=== PATIENT | female | born 2000 | race Caucasian/White ===

== ENCOUNTER 2022-09-20 09:58 | Emergency (ER) | payer OTHER, SELFPAY ==
[2022-09-20 10:09] VITALS: BP 121/50; PULSE 87; RESP 20; TEMP 36.7; O2SAT 98; BMI 28.3
[2022-09-20 10:19] LABS: MANUAL DIFF FLAG NO
[2022-09-20 10:21] LABS: Basophils Absolute Auto 0.1 X10*3/uL (0.0-0.2); Basophils Percent Auto 0.3 % (0-2); Eosinophils Absolute Auto 0.1 X10*3/uL (0.0-0.4); Eosinophils Percent Auto 0.8 % (0-4); Hematocrit 34.1 % (37.0-47.0); Hemoglobin 10.7 g/dl (12.0-16.0); Imm Gran Pct Auto 0.6 % (0.0-0.4); Lymphocytes Absolute Auto 1.9 X10*3/uL (1.2-4.9); Lymphocytes Percent Auto 10.8 % (20-40); Mean Corpuscular HGB Conc 31.4 g/dl (31.0-35.0); Mean Corpuscular Hemoglobin 24.1 pg (27.0-33.0); Mean Corpuscular Volume 76.8 fL (80.0-98.0); Mean Platelet Volume 10.1 fL (9.4-12.3); Monocytes Absolute Auto 0.9 X10*3/uL (0.1-1.2); Monocytes Percent Auto 4.8 % (2-11); Neutrophils Absolute Auto 14.7 x10*3/uL (2.0-8.3); Neutrophils Percent Auto 82.7 % (45-73); Platelet Count 500 X10*3/uL (160-400); Red Blood Count 4.44 X10*6/uL (4.20-5.50); Red Cell Distribution Width 16.1 % (11.0-16.0); White Blood Count 17.8 X10*3/uL (4.8-10.8)
[2022-09-20 10:45] LABS: Anion Gap 12 (12-20); Blood Urea Nitrogen 12 mg/dL (9-16); Calcium 9.1 mg/dL (8.4-10.2); Carbon Dioxide 25 mmol/L (22-29); Chloride 107 mmol/L (96-108); Creatinine Clr Calc Pharmacy 140.8; Estimated Glomerular Filt Rate > 60; Glucose Random 98 mg/dL (60-115); Sodium 140 mmol/L (135-145)
[2022-09-20 10:53] LABS: HCG Quantitative < 2 mIU/mL
--- NOTE | 2022-09-20 11:48 | ED_ITS ---
HPI - General Adult General Chief complaint: General Medical Stated complaint: /cramping Time Seen by Provider: 09/20/22 11:17 Source: patient Mode of arrival: ambulatory Limitations: no limitations History of Present Illness HPI narrative: Patient is a 21 year old assigned female at with no reported medical history presenting to the emergency department today with nausea and requesting a test. Patient states that she was concerned she was , had heavy bleeding last week that stopped, and she is now nauseous. Patient denies any dizziness, lightheadedness, abdominal pain, vomiting, fever, chills, blurry vision, double vision, loss of vision, chest pain, difficulty breathing, shortness of breath, back pain, night sweats, pain with urination, increased urinary frequency, increased urinary urgency, blood in her urine or stool, syncope or a near syncopal episode, recent trauma or falls, bowel incontinence, bladder incontinence, bowel retention, bladder retention, or any other complaints at this time. Onset (ago): day(s) Severity: mild Severity scale (1-10): 2 Relieving factors: none Exacerbating factors: none Associated symptoms: nausea/vomiting Treatments prior to arrival: none Related Data Allergies Allergy/AdvReac Type Severity Reaction Status Date / Time No Known Allergies Allergy Unverified 06/30/20 18:20 Review of Systems Constitutional: Constitutional: Reports no additional constitutional complaints, Denies chills, Denies fever(s) and Denies night sweats Eyes: Eyes: Reports no additional eye complaints, Denies blurry vision, Denies change in vision, Denies diplopia, Denies eye discharge, Denies loss of vision and Denies eye pain ENT: Denies dizziness Cardiovascular: Cardiovascular: Reports no additional cardiovascular complaints, Denies chest pain, Denies lightheadedness, Denies Loss of Consciousness and Denies dyspnea Respiratory: Respiratory: Reports no additional respiratory complaints and Denies dyspnea Gastrointestinal: Gastrointestinal: Reports no additional gastrointestinal complaints, Denies abdominal pain, Denies melena, Denies hematochezia, Denies change in bowel habits, Denies change in stool character and Reports nausea Genitourinary: Genitourinary: Denies hematuria, Denies urinary frequency, Denies dysuria, Denies urinary incontinence, Denies urinary hesitancy and Denies urinary urgency Musculoskeletal: Musculoskeletal: Reports no additional musculoskeletal complaints, Denies numbness and Denies tingling Neurologic: Denies dizziness, Denies loss of vision, Denies numbness and Denies tingling Psychiatric: Psychiatric: Reports no additional psychiatric complaints Endocrine: Endocrine: Reports no additional endocrine complaints Hematologic/Lymphatic: Hematologic/Lymphatic: Reports no additional hematologic/lymphatic complaints Allergic/Immunologic: Allergic/Immunologic: Reports no additional allergic/immunologic complaints [facility] Past Medical History Attestation statement: The following information was validated with the patient. Source: old records reviewed and nursing notes reviewed Social History Social History Advance Directives: No Physical Exam ED Vital Signs: Vital Signs - 24 hr 09/20/22 10:09 Temperature 98.0 F Pulse Rate 87 Respiratory Rate 20 Blood Pressure 121/50 L Pulse Oximetry 98 Oxygen Delivery Method Room Air BMI result Body Mass Index 28.3 Const General: cooperative, no acute distress, alert and awake Nutritional Appearance: well nourished Orientation/consciousness: patient oriented x3 Limitations: no limitations HENMT Head: Yes normal to inspection and Yes atraumatic Ears: hearing grossly normal bilaterally and external ears normal General nose exam: Normal external nose present, no nasal discharge noted and no epistaxis Face and sinus: Yes normal facial exam, No abrasion and No laceration Mouth: Normal oral and palatal mucosa present, no drooling and no muffled voice Eyes General: appearance normal, both eyes and all related structures Periorbital: periorbital findings normal Eyelids: Yes eyelids normal Conjunctivae: conjunctivae normal Pupils: Equal, round and reactive pupils present EOM: EOMs intact bilaterally Neck Neck: Yes normal visual inspection, Yes full ROM and Yes no lymphadenopathy Chest Chest palpation & inspection: normal inspection of the chest Resp Effort & Inspection: normal respiratory effort and able to speak in complete sentences Auscultation: clear to auscultation bilaterally Cardio Rate: regular rate Rhythm: regular rhythm GI Inspection: Yes normal to inspection Palpation (GI): Soft to palpation, not firm, nontender, no guarding and not rigid Neuro General: patient oriented x3 and moves all extremities Cranial nerves: Yes Equal, round and reactive pupils present Cognition (Neuro): normal cognition Motor exam (neuro): 5/5 motor strength present throughout Sensory Exam: Normal double simultaneous stimulation for sensation Coordination: [id number] test normal Extrem General: Yes normal to inspection, Yes full ROM and Yes capillary refill normal Psych Appearance: grossly normal Mental Status: mental status grossly normal Affect: normal affect Attitude: cooperative Thought process: Normal thought process present Thought content: Normal thought content present Insight: Good insight present (Psych) Medical Decision Making Medical Decision Making MDM Narrative: Patient is a 21 year old assigned female at with no reported medical history presenting to the emergency department today with nausea. Patient's physical exam was unremarkable. Patient's blood work showed an elevated white blood cell count but was otherwise unremarkable, including <2 HCG. I attribute the patient's elevated white blood cell count to a stress reaction vs. enteritis. I explained my physical exam findings as well as all test results to the patient. I answered all questions asked by the patient. I stressed the importance of the patient taking her medication as prescribed. I stressed the importance of the patient following up with her primary care provider. I stressed the importance of the patient returning to the emergency department immediately if her symptoms were to worsen or if she were to develop any dizziness, shortness of breath, difficulty breathing, chest pain, blurry vision, loss of vision, nausea, vomiting, abdominal pain, fever, chills, back pain, or any other complaints. Patient verbalized agreement and understanding with this treatment plan and discharge. Differential Diagnoses: Differential diagnosis Differential Diagnosis: nausea, , enteritis Lab Attestation: I reviewed the patient's lab results. Discharge Plan Discharge Clinical Impression: Nausea Patient Disposition: Home, Self-Care Instructions: Acute Nausea and Vomiting (ED) Additional Instructions: Follow up with your primary care provider and an OBGYN. Return to the emergency department immediately if your symptoms worsen or if you develop any dizziness, shortness of breath, difficulty breathing, chest pain, blurry vision, loss of vision, nausea, vomiting, abdominal pain, fever, chills, back pain, or any other complaints. Referrals: Abby Austin MD [Primary Care Provider] - Indio Alcantara MD [Physician] - (Call to establish and follow up with an OBGYN. ) Stand Alone Forms: Work/School Release Print Language: Greek
[2022-09-20 12:23] VITALS: BP 112/71; PULSE 83; RESP 16; O2SAT 99
== END 2022-09-20 12:25 | disposition home or self-care (01) ==
PROVIDERS: Emergency Provider Emergency Medicine; PCP Pediatrics Adolescent Medicine
DX: O20.9 Hemorrhage in early pregnancy, unspecified (principal); R11.0 Nausea; Z79.899 Other long term (current) drug therapy; Z3A.00 Weeks of gestation of pregnancy not specified
CPT/HCPCS: 36415; 80048; 84702; 85025; 99283

== ENCOUNTER 2023-06-08 18:29 | Emergency (ER) | payer OTHER, SELFPAY ==
--- NOTE | ~2023-06-08 | XR_ITS ---
EXAMINATION: XR CHEST CLINICAL INFORMATION: Cough, hemoptysis. COMPARISON: Chest radiograph 06/26/2015. TECHNIQUE: AP view of the chest was obtained. FINDINGS: No significant abnormality is noted involving the heart, lungs, mediastinum, bony thorax or soft tissues. XR/XR chest 1V IMPRESSION: Unremarkable examination.
[2023-06-08 18:29] VITALS: BP 115/54; PULSE 91; RESP 20; TEMP 37.2; O2SAT 98; BMI 31.3
--- NOTE | 2023-06-08 18:59 | ED_ITS ---
HPI - General Adult General Chief complaint: General Medical Stated complaint: throat pain Time Seen by Provider: 06/08/23 18:52 Source: patient and family Mode of arrival: ambulatory Limitations: no limitations History of Present Illness HPI narrative: Patient comes to the emergency room accompanied by her fiance. Patient states that for last 2 days she has been having sore throat, coughing, patient states that she has seen some blood when she coughs. Patient states he has very scant, pinkish. Patient denies fever chills, no shortness of breath. No one else in the family has the same symptoms. Denies chest pain. No nausea vomiting or diarrhea. Related Data Allergies Allergy/AdvReac Type Severity Reaction Status Date / Time No Known Allergies Allergy Verified 06/08/23 18:35 Review of Systems Review of Systems: Constitutional : No Weight loss, No Fever, No Chills, No Night Sweats, No Fatigue, No Malaise ENT/Mouth : No Hearing loss, No Ear Pain, No Nasal Congestion, No Sinus Pain, No Hoarseness, patient complaining of sore throat, No Rhinorrhea, No Swallowing Difficulty Eyes: No Eye Pain, No Swelling, No Redness, No Foreign Body, No Discharge, No Vision Changes Cardiovascular : No Chest Pain, No SOB, No Dyspnea on Exertion, No Orthopnea, No Edema, No Palpitations Respiratory : Patient complaining of cough with pinkish sputum,, No Wheezing, No Smoke Exposure, No Dyspnea Gastrointestinal : No Nausea, No Vomiting, No Diarrhea, No Constipation, No abdominal Pain, No Hematochezia, No Melena Genitourinary : no irregular bleeding, No Dysuria, No Urinary Frequency, No Hematuria, No Urinary Incontinence, No Urgency, No Flank Pain, No Urinary Flow Changes, No Hesitancy Musculoskeletal : No joint pain, No Myalgias, No Joint Swelling Skin : No Skin Lesions, No rash Neuro : No Weakness, No Numbness, No Paresthesias, No Loss of Consciousness, No Dizziness, No Headache Psych : No Anxiety/Panic, No Depression, No SI/HI/AH/VH, No Social Issues, Heme/Lymph: No Bruising, No Bleeding,No Lymphadenopathy Endocrine : No Polyuria, No Polydipsia, No Temperature Intolerance PMFSH Social History Social History Alcohol intake: never Use of substances other than those prescribed or required for medical reasons: No Advance Directives: No Patient : No Physical Exam ED Vital Signs: Vital Signs - 24 hr 06/08/23 18:29 06/08/23 19:20 06/08/23 20:00 Temperature 98.9 F 98.2 F 98.7 F Pulse Rate 91 73 69 Respiratory Rate 20 18 16 Blood Pressure 115/54 L 109/61 110/68 Pulse Oximetry 98 98 100 Oxygen Delivery Method Room Air Room Air Room Air BMI result Body Mass Index 31.3 Const Other: Appearance: Alert. Oriented X3. No acute distress. Well-appearing Eyes: Pupils equal, round and reactive to light. ENT: Pharynx mildly erythematous, no exudates, no abscesses Neck: Normal inspection. Neck supple. No lymph nodes noted. No crepitus CVS: Normal heart rate and rhythm. Pulses normal. Normal S1 and S2 Respiratory: No respiratory distress. Breath sounds normal. No Wheezing. No rales Abdomen: Soft and nontender. No rigidity. No distention. Skin: Skin warm and dry. Normal skin color. Normal skin turgor. Extremities: No lower extremity edema. No Lacerations. No Rash Neuro: Oriented X 3. No motor deficit. No sensory deficit. Moving all extremities. No slurred speech. CN 2 through 12 grossly intact Psych: calm, cooperative, normal affect Medical Decision Making Medical Decision Making [facility] Narrative: -my interpretation of chest x-ray: No pneumonia -radiology report: Unremarkable x-ray of the chest -my interpretation of labs, patient tested negative for COVID, influenza or strep -patient was given a dose of p.o. dexamethasone and viscous lidocaine -patient likely having a viral pharyngitis Differential Diagnosis Differential Diagnoses: The differential diagnosis associated with the presentation includes (Viral pharyngitis, strep pharyngitis, COVID, influenza) Lab Data [facility] Lab Attestation statement: I reviewed the patient's lab results. Labs: Lab Results 06/08/23 06/08/23 06/08/23 Range/Units 19:19 19:19 19:19 COVID-19 (BESSIE) Negative (Negative) COVID-19 Clin Com See Note Influenza Type A (MANJEET) Negative (Negative) Influenza Type B (MANJEET) Negative (Negative) Influenza A & B Note See Note S. pyogenes GrpA MANJEET Negative (Negative) Discharge Plan Discharge Clinical Impression: Acute viral pharyngitis Patient Disposition: Home, Self-Care Instructions: Pharyngitis (ED) Additional Instructions: Please follow-up with your primary care physician tomorrow. If you have any worsening or new symptoms, please return to the emergency room or call 911
[2023-06-08 19:20] VITALS: BP 109/61; PULSE 73; RESP 18; TEMP 36.8; O2SAT 98
--- NOTE | 2023-06-08 19:21 | PC.NURSE ---
Pt a&ox3, no apparent distress, VSS, pt reporting 9/10 constant throat pain, reports difficulty swallowing solid foods, ice chips given, able to swallow. Pt swabbed for strep/covid/flu, sent to lab. Call andrews given, with instructions on how to use.
[2023-06-08 19:39] LABS: COVID-19 Test Negative (Negative); IDNOW Serial# BCCEAD1C
[2023-06-08 19:40] LABS: IDNOW Serial# 08D9AD1C; IDNOW Serial# 9DB6401D; Influenza A Negative (Negative); Influenza B2 Negative (Negative); Strep A Nucleic Acid Negative (Negative)
[2023-06-08 20:00] VITALS: BP 110/68; PULSE 69; RESP 16; TEMP 37.1; O2SAT 100
[2023-06-08] MEDS: dexAMETHasone sod phosphate 4 MG/ML VIAL 6 MG IVPUSH (21:15)
[2023-06-08] MEDS: Lidocaine HCl Viscous 2 % 15 ML SOLUTION MUCOUS MEM (21:16)
== END 2023-06-08 21:29 | disposition home or self-care (01) ==
PROVIDERS: Emergency Provider Emergency Medicine; PCP Pediatrics Adolescent Medicine
DX: J02.9 Acute pharyngitis, unspecified (principal); Z20.822 Contact with and (suspected) exposure to COVID-19
CPT/HCPCS: 71045; 87502; 87635; 87651; 96374; 99284; J1100

== ENCOUNTER 2024-03-02 21:16 | Emergency (ER) | payer OTHER, SELFPAY ==
[2024-03-02 21:21] VITALS: BP 130/80; PULSE 114; O2SAT 98
[2024-03-02 21:47] VITALS: BP 116/73; PULSE 111; RESP 20; TEMP 37.7; O2SAT 97; BMI 29.5
[2024-03-02 22:36] LABS: IDNOW Serial# 58CA691E; Strep A Nucleic Acid Positive (Negative)
[2024-03-02 22:48] LABS: COVID-19 Test Negative (Negative); IDNOW Serial# 08D9AD1C; IDNOW Serial# 152EDE1D; Influenza A Negative (Negative); Influenza B2 Negative (Negative)
[2024-03-03 01:24] VITALS: BP 126/81; PULSE 112; RESP 20; TEMP 37.4; O2SAT 98
[2024-03-03 04:00] VITALS: BP 124/72; PULSE 100; RESP 18; TEMP 37.1; O2SAT 100
--- NOTE | 2024-03-03 04:09 | ED_ITS ---
HPI - URI/Sore Throat General Chief Complaint: Upper Respiratory Symptoms Stated Complaint: SORE THROAT ,VOMITING PINK SPUTUM, RLQ PAIN Time Seen by Provider: 03/03/24 03:55 Source: patient Mode of arrival: ambulatory History of Present Illness ED Provider: Dr De La Cruz HPI Narrative: 23-year-old female who reports 2 days of sore throat, difficulty swallowing, boyfriend reported white spots in the back of her throat, she also reports subjective fevers and chills and lately has began developing nausea with isolated episodes of vomiting. Related Data Previous Rx's ?Medication ?Instructions ?Recorded amoxicillin 875 mg-potassium 1 tab PO BID 10 days #20 tabs 03/03/24 clavulanate 125 mg tablet Allergies Allergy/AdvReac Type Severity Reaction Status Date / Time No Known Allergies Allergy Verified 03/02/24 21:53 Review of Systems Review of Systems: Pertinent positives and negatives as stated in HPI [facility] Past Medical History Source: nursing notes reviewed Social History Social History Alcohol intake: never Advance Directives: No Do you have a plan to hurt others: No Plan Physical Exam Vital Signs: Vital Signs: Last Vital Signs Temp 98.8 F 03/03/24 04:00 Pulse 100 03/03/24 04:00 Resp 18 03/03/24 04:00 BP 124/72 03/03/24 04:00 Pulse Ox 100 03/03/24 04:00 O2 Del Method Room Air 03/03/24 04:00 BMI result Body Mass Index 29.5 VITAL SIGNS: Reviewed. GENERAL: Well developed, well nourished, in no acute distress. HEAD: Normocephalic/atraumatic EYES: PERRLA, EOMI EARS: Ext canals without abnormality, TMs non-bulging and non-erythematous NOSE: Nares patent bilateral OROPHARYNX: no oral lesions noted, posterior pharynx clear and erythematous with noted tonsillar enlargement/erythema/exudates NECK: Supple, +adenopathy LUNGS: Normal breath sounds. No adventitious sounds or accessory muscle use. SpO2<98> CARDIOVASCULAR: Regular rate and rhythm without noted murmurs ABDOMEN: Soft, non-tender, non-distended with bowel sounds. MUSCULOSKELETAL: No tenderness, deformities, or effusions noted on gross inspect ion. EXTREMITIES: No cyanosis, clubbing or edema. SKIN: Inspection of the skin reveals no rashes NEUROLOGIC: Alert and oriented x 4. Strength and sensation to light touch were grossly intact x 4. Medications Administered Discontinued Medications Generic Name Dose Route Start Last Admin Trade Name Jenelle PRN Reason Stop Dose Admin Acetaminophen 975 mg 03/03/24 04:00 03/03/24 04:17 Acetaminophen 325 Mg Tablet PO 03/03/24 04:01 975 mg ONCE ONE Administration Amoxicillin/Clavulanate Potassium 875 mg 03/03/24 04:00 03/03/24 04:17 Amoxicillin/Potassium Clav 875 Mg Tablet PO 03/03/24 04:01 875 mg ONCE ONE Administration Ibuprofen 400 mg 03/03/24 04:00 03/03/24 04:16 Ibuprofen 400 Mg Tablet PO 03/03/24 04:01 400 mg ONCE ONE Administration Ondansetron HCl 4 mg 03/03/24 04:00 03/03/24 04:17 Ondansetron Odt 4 Mg Tab.Rapdis TRANSLINGU 03/03/24 04:01 4 mg ONCE ONE Administration Medical Decision Making Medical Decision Making [facility] Narrative: 23-year-old female with history and clinical presentation, DDX: Strep pharyngitis, viral pharyngitis Review of investigations demonstrates the patient has rapid strep positive, she received antinausea medications/combination analgesics as well as initial antibiotics. She is otherwise discharged home in stable condition. Differential Diagnosis Differential Diagnoses: The differential diagnosis associated with the presentation includes Please see the discussion above Admission/Observation Consideration of admission/observation: Escalation of care including admission/observation considered Please see the discussion above Lab Data [facility] Lab Attestation statement: I reviewed the patient's lab results. Please see the discussion above Labs: Lab Results 03/02/24 Range/Units 22:25 COVID-19 (BESSIE) Negative (Negative) COVID-19 Clin Com See Note Influenza Type A (MANJEET) Negative (Negative) Influenza Type B (MANJEET) Negative (Negative) Influenza A & B Note See Note S. pyogenes GrpA MANJEET Positive A (Negative) Discharge Plan Discharge Clinical Impression: Strep pharyngitis Patient Disposition: Home, Self-Care Instructions: Strep Throat (ED) Additional Instructions: Complete the entire course of antibiotics as prescribed. Recommend [id number] Tylenol/ibuprofen as needed for pain control. Also consider the use of [id number] Cepacol for symptom relief of your throat. Return to the emergency room for any worsening of symptoms. Prescriptions: New amoxicillin-pot clavulanate 875-125 mg tablet 1 tab PO BID 10 Days Qty: 20 0RF Print Language: Amharic
[2024-03-03] MEDS: Ibuprofen 400 MG TABLET PO (04:16)
[2024-03-03] MEDS: Amoxicillin/Potassium Clav 875 MG TABLET PO (04:17)
[2024-03-03] MEDS: Ondansetron ODT 4 MG TAB.RAPDIS TRANSLINGU (04:17)
[2024-03-03] MEDS: Acetaminophen 325 MG TABLET 975 MG PO (04:17)
[2024-03-03 05:35] VITALS: BP 111/62; PULSE 98; RESP 16; TEMP 36.7; O2SAT 97
[2024-03-03 05:40] VITALS: BP 111/62; PULSE 98; RESP 16; TEMP 36.7; O2SAT 97
== END 2024-03-03 05:40 | disposition home or self-care (01) ==
PROVIDERS: Emergency Provider Student in an Organized Health Care Education/Training Program
DX: J02.0 Streptococcal pharyngitis (principal); Z11.52 Encounter for screening for COVID-19
CPT/HCPCS: 87502; 87635; 87651; 99283

== ENCOUNTER 2024-06-27 18:10 | Inpatient (IN) | payer OTHER, SELFPAY ==
[2024-06-27] VITALS (15 sets, daily range): BP systolic 87–139; BP diastolic 43–74; PULSE 56–92; RESP 12–19; TEMP 36.9; O2SAT 70–100; BMI 29.2
--- NOTE | ~2024-06-27 | CT_ITS ---
EXAMINATION: CT HEAD WITHOUT CONTRAST CT CERVICAL SPINE WITHOUT CONTRAST CLINICAL INFORMATION: Altered mental status. Fall. Neck pain. Overdose. COMPARISON: None available. TECHNIQUE: Contiguous axial imaging was performed from the skull base to vertex without intravenous administration of contrast. Contiguous axial imaging was performed from the upper chest through the skull base without intravenous administration of contrast. Coronal and sagittal reformats were obtained at the acquisition workstation. This CT examination was performed using dose optimization techniques as appropriate, variously including the following: *Automated exposure control. *Adjustment of mA and/or kV according to patient size (this includes techniques or standardized protocols for targeted exams where dose is matched to indication/reason for exam; i.e. extremities or head). *Use of iterative reconstruction technique. DLP: 979 mGy-cm FINDINGS: Head: There is no evidence of acute intracranial hemorrhage or edematous territorial infarction. Quintana-white matter differentiation is preserved. There is no abnormal attenuation within the brain parenchyma. The ventricles are normal in morphology and size. No evidence for obstructive hydrocephalus. No abnormal mass effect or midline shift. No extra-axial fluid collections. No acute soft tissue or osseous abnormalities. Mild mucosal thickening of the paranasal sinuses. The mastoid air cells and middle ear cavities are clear. Cervical Spine: The atlantooccipital and atlantoaxial articulations remain well aligned. Mild reversal of the normal cervical lordosis centered at C5. Otherwise, there is anatomic alignment of the vertebral bodies and posterior elements. No evidence of acute fracture or subluxation. The vertebral body heights and disc spaces are maintained. There is no prevertebral soft tissue swelling. The thyroid gland and remaining cervical soft tissues are within normal limits. The lung apices demonstrate no abnormalities. CT/CT cervical spine wo IV con IMPRESSION: 1. No evidence of acute intracranial hemorrhage or edematous territorial infarction. 2. No evidence of acute fracture or traumatic subluxation of the cervical spine. Electronically signed by: Werner Beck DO 06/27/2024 11:44 PM EDT
--- NOTE | ~2024-06-27 | XR_ITS ---
EXAMINATION: XR CHEST CLINICAL INFORMATION: Shortness of breath. COMPARISON: Chest radiograph dated 06/08/2023. TECHNIQUE: Frontal view of the chest was obtained. FINDINGS: No significant abnormality is noted involving the heart, lungs, mediastinum, bony thorax or soft tissues. Lung volumes are somewhat diminished. XR/XR chest 1V IMPRESSION: No focal infiltrate or congestive heart failure is seen. Lung volumes are somewhat diminished. Electronically signed by: Ken Carnes MD 06/27/2024 09:32 PM EDT
--- NOTE | ~2024-06-27 | XR_ITS ---
EXAMINATION: XR CHEST CLINICAL INFORMATION: Shortness of breath, hypoxia COMPARISON: 06/27/2024 TECHNIQUE: Frontal view of the chest was obtained. FINDINGS: Lung volumes are symmetric. There is extensive heterogeneous bilateral airspace opacity throughout the lungs, new from prior. No evidence of pneumothorax. Trace pleural effusions cannot be excluded. The cardiomediastinal contour is unremarkable. No acute osseous findings are seen. XR/XR chest 1V IMPRESSION: Extensive heterogeneous bilateral airspace opacities, new from prior and suspicious for edema versus developing ARDS in the proper clinical setting. Electronically signed by: Aidan Goldman MD 06/28/2024 05:55 AM EDT
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
[2024-06-27] MEDS: ondansetron HCL 4 MG/2 ML VIAL IVPUSH (18:50)
[2024-06-27] MEDS: Naloxone HCl 0.4 MG/ML VIAL IVPUSH (18:50)
--- NOTE | 2024-06-27 18:50 | PC.NURSE ---
Addendum entered by Rubi Mercedes RN 06/27/24 18:55: patient pupils noted to be pinpoint. Original Note: upon arrival to ED patient satting 70% on room air, patient moved into room 5 mgiven intranasal narcan 4mg, placed on non rebreather mask 15l sats came up slowly patient only arousable to noxious stimuli. noted to be hypotensive, IV access started in the right AC #2, 1L NS started. patient given another dose of IV narcan, with no change in response. patient has snoring respirations, audible upper airway gurgling.
[2024-06-27 18:55] LABS: Basophils Absolute Auto 0.1 X10*3/uL (0.0-0.2); Basophils Percent Auto 0.4 % (0-2); Eosinophils Absolute Auto 0.1 X10*3/uL (0.0-0.4); Eosinophils Percent Auto 0.4 % (0-4); Hematocrit 31.3 % (37.0-47.0); Hemoglobin 9.8 g/dl (12.0-16.0); Imm Gran Abs Auto 0.08 X10*3/uL (0.00-0.03); Imm Gran Pct Auto 0.4 % (0.0-0.4); Lymphocytes Absolute Auto 4.7 X10*3/uL (1.2-4.9); Lymphocytes Percent Auto 25.3 % (20-40); MANUAL DIFF FLAG SCAN; Mean Corpuscular HGB Conc 31.3 g/dl (31.0-35.0); Mean Corpuscular Hemoglobin 23.1 pg (27.0-33.0); Mean Corpuscular Volume 73.8 fL (80.0-98.0); Mean Platelet Volume 10.1 fL (9.4-12.3); Monocytes Percent Auto 5.5 % (2-11); Neutrophils Absolute Auto 12.5 x10*3/uL (2.0-8.3); Platelet Count 503 X10*3/uL (160-400); Red Blood Count 4.24 X10*6/uL (4.20-5.50); Red Cell Distribution Width 18.1 % (11.0-16.0); SCAN SMEAR FLAG 1; White Blood Count 18.4 X10*3/uL (4.8-10.8)
[2024-06-27] MEDS: 0.9 % Sodium Chloride 1,000 ML 999 ML IV ×2 (18:55→19:47)
--- NOTE | 2024-06-27 19:01 | PC.NURSE ---
patient changed over in hospital attire, belongings secured to landry
[2024-06-27 19:12] LABS: Alanine Aminotransferase 59 U/L (0-31); Albumin Level 4.2 g/dL (3.5-5.0); Alkaline Phosphatase 65 U/L (39-117); Anion Gap 11 (12-20); Aspartate Amino Transferase 87 U/L (5-31); Bilirubin Total 0.5 mg/dL (0.0-1.0); Blood Urea Nitrogen 15 mg/dL (9-16); Calcium 8.8 mg/dL (8.4-10.2); Carbon Dioxide 24 mmol/L (22-29); Chloride 108 mmol/L (96-108); Creatinine Clr Calc Pharmacy 118.8; Estimated Glomerular Filt Rate > 60; Ethanol < 10 mg/dL; Glucose Random 177 mg/dL (60-115); Potassium 3.4 mmol/L (3.3-5.1); Sodium 140 mmol/L (135-145); Total Protein 7.2 g/dL (6.5-8.0)
--- NOTE | 2024-06-27 19:15 | PC.NURSE ---
providers Princess JIMENEZ and MD Charles to bedside, to keep pt on 15L nonrebreather. continuous heart, o2 and co2 monitoring. pt arousable to name.
--- NOTE | 2024-06-27 19:23 | PC.NURSE ---
assumed care of pt 1915. 3x attempt for 2nd blood cultures only able to obtain 1 at this time. continuing attempts however abx started.
[2024-06-27 19:24] LABS: SLIDE REVIEW VERIFIED
[2024-06-27] MEDS: cefTRIAXone sodium 1 GM in 0.9 % Sodium Chloride 50 ML IV (19:25)
[2024-06-27] MEDS: Azithromycin 500 MG in 0.9 % Sodium Chloride 250 ML 125 MG IV (19:35)
[2024-06-27 19:41] LABS: Lactic Acid 1.1 mmol/L (0.5-2.0)
--- NOTE | 2024-06-27 19:41 | PC.NURSE ---
Addendum entered by Anamaria Duffy 06/27/24 19:42: PA aware of bp. Original Note: per moreno lynch to trial pt on oxymask 6L. 1937 nonrebreather removed and placed on oxymask. sats 95% and end tital co2 34.
[2024-06-27 19:48] LABS: VBG Base Excess -3.2 mmol/L; VBG HCO3 24 mmol/L (22-26); VBG pCO2 55 mmHg; VBG pH 7.25 (7.32-7.43); VBG pO2 45 mmHg
[2024-06-27 19:51] LABS: Venous Blood Gas Refer to POC result
[2024-06-27 20:04] LABS: Acetaminophen LAB < 3 mcg/mL (<30); Salicylate < 5.0 mg/dL (15-30)
[2024-06-27 20:17] LABS: HCG Quantitative < 2 mIU/mL
--- NOTE | 2024-06-27 20:42 | PC.NURSE ---
pt desat to 89-90% on 8L oxymask. Princess JIMENEZ and RT notified. pt placed back on 15L Nonrebreather. sats 95%.
--- NOTE | 2024-06-27 20:44 | PC.NURSE ---
RT at bedside with highflow.
--- NOTE | 2024-06-27 20:48 | PC.NURSE ---
pt ripped off highflow and requested bedpan to pee. sats 72% on RA. placed back on highflow and given bed santos. pt back asleep. Princess JIMENEZ aware.
[2024-06-27] MEDS: Albuterol Sulfate (0.083%) 2.5 MG/3 ML VIAL.NEB 10 MG INHALE (20:58)
[2024-06-27] MEDS: methylPREDNISolone Sod Succ 125 MG/2 ML VIAL IVPUSH (21:34)
--- NOTE | 2024-06-27 22:26 | PC.NURSE ---
pt to ct scan with rt at bedside.
--- NOTE | 2024-06-27 22:33 | PC.NURSE ---
return to room from ct scan. placed back on highflow by RT. pt resting comfortably arousable to name and following commands appropriately.
--- NOTE | 2024-06-27 23:17 | PM.IMHP ---
History of Present Illness Date of Service: 06/27/24 Attending physician on admission: Gustavo Tee Chief Complaint: Shortness of breath Radha Pratt is a 23 years old woman with no significant past medical history was brought to the emergency department after she was found unresponsive in an alleyway. She was found to have an oxygen saturation of 70% on room air by EMS. Patient stated that she sniffed a bag of heroin today. She denied prior history of illicit drug use. She denied use of other drugs illicit drug, alcohol, tobacco or marijuana. Per EMS, she was given 12 mg of intranasal Narcan. She denied any headache, dizziness, sore throat, chest pain or cough. She also denies fever or chills. Did not report any acute gastrointestinal or genitourinary symptoms. In the ED, she was found to have an oxygen saturation of 70% on room air blood pressure 87/44. There is no tachycardia or fever. She is currently on high-flow. Blood workup was remarkable for leukocytosis of 18.4. Hemoglobin is 9.8. There is no lactic acidosis or electrolyte imbalances. Renal function is normal. Transaminases are mildly elevated. Bilirubin and alk-phos are normal. test is negative. Head and cervical CT scans were obtained -results are still pending. ED tx: Ceftriaxone 1 g IV, azithromycin 500 mg IV, Zofran 4 mg IV Narcan 0.4 mg IV, NS 1 L bolus, albuterol 10 mg Review of Systems Review of Systems: All 12 systems were reviewed and normal except as noted in HPI. [facility], [facility] Social History Alcohol intake: never Advance Directives: No Advance Directives Information Provided: No Do you have a plan to hurt others: No Plan Meds Allergies Allergy/AdvReac Type Severity Reaction Status Date / Time No Known Allergies Allergy Verified 06/27/24 18:47 Active Medications: Current Medications Acetaminophen (Acetaminophen 325 Mg Tablet) 975 mg PO Q6H PRN PRN Reason: Pain, Mild (Pain Scale 1-3), fever or headache Enoxaparin Sodium (Enoxaparin Sodium 40 Mg/0.4 Ml Syringe) 40 mg SUBCUT Q24H RENEE Lactated Ringer's (Lr) 1,000 mls @ 100 mls/hr IVCONT .Q10H RENEE Piperacillin Sod/Tazobactam (Sod 3.375 gm/ Sodium Chloride) 50 mls @ 100 mls/hr IV Q6H RENEE Sodium Chloride (0.9 % Sodium Chloride Flush 3 Ml Syringe) 3 ml IVFLUSH QSHIFT RENEE Physical Exam Vital Signs and Narrative: Vital Signs: Last Vital Signs Temp 98.4 F 06/27/24 22:32 Pulse 76 06/27/24 22:32 Resp 18 06/27/24 22:38 BP 106/62 06/27/24 22:32 Pulse Ox 90 L 06/27/24 22:32 O2 Del Method High Flow Nasal C annula 06/27/24 22:32 O2 Flow Rate 50 06/27/24 22:32 BMI result Body Mass Index 29.2 Constitutional - Awake and Alert, No apparent distress. On high-flow. HEENT - PERRLA, EOMI Heart - S1S2, RRR, No murmurs. Lungs - Normal lung expansion, Normal respiratory effort, No respiratory distress. Tachypneic. Decreased breath sound at bases.. Abdomen - NT / ND; +BS; No rebound or guarding Extremities - No calf tenderness bilaterally, no swelling Musculoskeletal - Normal inspection, normal ROM Skin - Warm/Dry Neurological - Alert & oriented x3. Normal speech. Normal behavior. Psychological - Depressed affect Results Labs 06/27/24 18:48 06/27/24 18:48 Labs: Laboratory Results - last 24 hr 06/27/24 06/27/24 06/27/24 18:48 19:24 19:38 MCV 73.8 L MCH 23.1 L MCHC 31.3 RDW 18.1 H Plt Count 503 H MPV 10.1 Immature Gran % (Auto) 0.4 Neut % (Auto) 68.0 Lymph % (Auto) 25.3 Harper % (Auto) 5.5 Eos % (Auto) 0.4 Baso % (Auto) 0.4 Lymph # (Auto) 4.7 Harper # (Auto) 1.0 Eos # (Auto) 0.1 Baso # (Auto) 0.1 Abs Immat Gran (auto) 0.08 H Absolute Neuts (auto) 12.5 H Absolute Nucleated RBC 0.000 Nucleated RBC % (auto) 0.0 Smear Tech's Comments VERIFIED VBG pH VBG pCO2 VBG pO2 VBG HCO3 VBG O2 Saturation VBG Base Excess Anion Gap 11 L Estim Creat Clear Calc 118.8 Estimated GFR > 60 Random Glucose 177 H Lactic Acid 1.1 Calcium 8.8 Total Bilirubin 0.5 AST 87 H ALT 59 H Alkaline Phosphatase 65 Total Protein 7.2 Albumin 4.2 Beta HCG, Quant < 2 Salicylates < 5.0 L Acetaminophen < 3 Ethyl Alcohol < 10 06/27/24 19:44 MCV MCH MCHC RDW Plt Count MPV Immature Gran % (Auto) Neut % (Auto) Lymph % (Auto) Harper % (Auto) Eos % (Auto) Baso % (Auto) Lymph # (Auto) Harper # (Auto) Eos # (Auto) Baso # (Auto) Abs Immat Gran (auto) Absolute Neuts (auto) Absolute Nucleated RBC Nucleated RBC % (auto) Smear Tech's Comments VBG pH 7.25 L VBG pCO2 55 VBG pO2 45 VBG HCO3 24 VBG O2 Saturation 66.0 VBG Base Excess -3.2 Anion Gap Estim Creat Clear Calc Estimated GFR Random Glucose Lactic Acid Calcium Total Bilirubin AST ALT Alkaline Phosphatase Total Protein Albumin Beta HCG, Quant Salicylates Acetaminophen Ethyl Alcohol Imaging Radiologist's Impressions: Impressions Chest X-Ray 06/27/24 18:27 IMPRESSION: No focal infiltrate or congestive heart failure is seen. Lung volumes are somewhat diminished. Electronically signed by: Ken Carnes MD 06/27/2024 09:32 PM EDT RP Assessment and Plan (1) Acute respiratory failure with hypoxia and hypercapnia: Status: Acute (2) Heroin overdose: Qualifiers: Encounter type: initial encounter Injury intent: undetermined intent Qualified Code(s): T40.1X4A - Poisoning by heroin, undetermined, initial encounter Status: Acute Plan Radha Pratt is a 23 years old woman admitted with: Hypoxic and hypercapnic respiratory failure secondary to hypoventilation due to opiate/heroin overdose. Aspiration syndrome is a possibility. Admit to hospitalist service. Pulse oximetry. Telemetry. Continue high-flow to keep O2 sats > 90 %. Repeat VBG stat. Start empiric IV antibiotic therapy with Zosyn. Bronchodilator therapy as needed. Opiate overdose. Addiction Medicine consult. DVT prophylaxis: Lovenox Code status: Full Patient will need hospitalization for at least 2 midnights for hypoxic and hypercapnic respiratory failure due to heroin overdose treatment with supplemental oxygen and continuous monitoring vital signs and respiratory status. Quality Stroke Does the patient have a stroke diagnosis?: No VTE Prior VTE?: No VTE Risk Level:: Medical - moderate - high VTE Device Contraindication: N/A - Device Ordered VTE Drug Contraindication: N/A - Med Ordered
--- NOTE | 2024-06-27 23:22 | PC.NURSE ---
MD aware of bp/
[2024-06-27] MEDS: Lactated Ringers 1,000 ML 100 ML IVCONT (23:27)
[2024-06-27] MEDS: Piperacillin Sodium/Tazobactam 3.375 GM in 0.9 % Sodium Chloride 50 ML IV (23:28)
[2024-06-28] VITALS (32 sets, daily range): BP systolic 92–110; BP diastolic 49–70; PULSE 60–107; RESP 18–55; TEMP 36.3–37.2; O2SAT 89–98; BMI 28.3; BMI 27.7
[2024-06-28 00:04] LABS: Venous Blood Gas Refer to POC result
[2024-06-28 00:05] LABS: VBG Base Excess -6.1 mmol/L; VBG HCO3 23 mmol/L (22-26); VBG pCO2 65 mmHg; VBG pH 7.15 (7.32-7.43); VBG pO2 56 mmHg
--- NOTE | 2024-06-28 00:09 | PC.NURSE ---
critical vbg reported to MD Alireza Tee and ed provider Princess JIMENEZ. RT called for bipap per .
[2024-06-28 00:54] LABS: Amphetamine Screen Urine Not Detected (Not Detect); Barbiturates, Urine Not Detected (Not Detect); Benzodiazepines Screen Urine Not Detected (Not Detect); Buprenorphine Scr Not Detected (Not Detect); Cannabinoid Screen Urine Not Detected (Not Detect); Cocaine Screen Urine POSITIVE (Not Detect); Fentanyl, urine POSITIVE (Not Detect); Methadone Screen, Urine Not Detected (Not Detect); Opiate Screen Urine POSITIVE (Not Detect); Oxycodone Screen Urine Not Detected (Not Detect); Phencyclidine Screen Urine Not Detected (Not Detect)
--- NOTE | 2024-06-28 00:58 | PC.NURSE ---
Marco PA at bedside with RT both attempting to obtain ABGs. per PA plan for intubation however continue with narcan administration. pt is arousable to name and responds appropriately but falling asleep quickly.
[2024-06-28] MEDS: Naloxone HCl 0.4 MG/ML VIAL IVPUSH (01:02)
[2024-06-28 01:08] LABS: ABG Base Excess -6.8 mmol/L; ABG HCO3 20 mmol/L (22-26); ABG pCO2 46 mmHg (32-45); ABG pH 7.24 (7.35-7.45); ABG pO2 94 mmHg (83-108)
--- OUTSIDE RECORDS SUMMARY | 2024-06-28 01:26 | XMS_ITS | Continuity of Care Document ---
Author Organization [facility] Address [address] [place] [address]- Care Team Providers Care Gymnastics Coach Name Role Phone Geovanna CONTRERAS, Abby Johnson Primary Care Physici an Encounter [facility] Date(s): 07/14/20 - 08/13/[address] [address]- [facility] Allergies, Adverse Reactions, Alerts No Known Medication Allergies Medications Adderall 20 mg oral tablet 1 tablet = 20 mg, By Mouth, 2 times a day, 0 Refills, Maintenance, 01/25/15 7:36:21 Start Date: 01/25/15 Status: Ordered Naprosyn 375 mg oral tablet 375 mg, 1, tablet, By Mouth, 2 times a day, # 60 tablet, Refills 2, Tot. Refills 2, Maintenance, 05/21/16 15:50:26, Route to Pharmacy Electronically, [id number], [facility] [id number] Start Date: 05/21/16 Stop Date: 08/19/16 Status: Ordered Multivitamins with Folic Acid 1 mg oral tablet 1 tablet, By Mouth, Daily, # 90 tablet, 0 Refills, Maintenance, 07/08/20 5:08:00 EDT, Tablet, [facility] #[id number], 1 tablet By Mouth Daily, 72.2, kg, 07/07/20 18:40:00 EDT, Dry Weight Start Date: 07/08/20 Status: Ordered Risperdal Tablet By Mouth, Daily, Maintenance, 08/02/15 10:41:04 Start Date: 08/02/15 Status: Ordered trazodone 50 mg oral tablet 2 tablet = 100 mg, By Mouth, Daily at bedtime, 0 Refills, Maintenance, 01/25/15 7:36:48 Start Date: 01/25/15 Status: Ordered Problem List Condition Effective Dates Status Health Status Inform ant Depo-Provera contraceptive status(Confirmed) Active Pseudoseizures(Confirmed) Active Vertigo(Confirmed) Active Social History Social History Type Response Smoking Status Never smoker entered on: 01/25/15 Sex
--- OUTSIDE RECORDS SUMMARY | 2024-06-28 01:27 | XMS_ITS | Continuity of Care Document ---
Author Organization [facility] Address [address] [place] [address]- Care Team Providers Care Tip Finisher Name Role Phone Geovanna CONTRERAS, Abby Johnson Primary Care Physici an Encounter [facility] Date(s): 07/07/20 - 08/06/[address] [address]- [facility] Allergies, Adverse Reactions, Alerts No [...] Maintenance, 05/21/16 15:50:26, Route to Pharmacy Electronically, [id number], [facility] [id number] Start Date: 05/21/16 Stop Date: 08/19/16 Status: Ordered Multivitamins with Folic Acid 1 mg oral tablet 1 tablet, By Mouth, Daily, # 90 tablet, 0 Refills, Maintenance, 07/08/20 5:08:00 EDT, Tablet, [facility] #[id number], 1 tablet By Mouth Daily, 72.2, kg, [...]
--- OUTSIDE RECORDS SUMMARY | 2024-06-28 01:27 | XMS_ITS | Continuity of Care Document ---
Author Organization [facility] Address [address] [place] [address]- Care Team Providers Care Business Continuity Specialist Name Role Phone Geovanna CONTRERAS, Abby Johnson Primary Care Physici an [id number] Date(s): 10/11/22 - 11/10/[address] [address]- Attending Physician: Janay Irving Admitting Physician: Janay Irving Referring Physician: Janay Irving Allergies, Adverse Reactions, Alerts No Known Medication Allergies Medications Adderall 20 mg oral tablet 1 tablet = 20 mg, By Mouth, 2 times a day, 0 Refills, Maintenance, 01/25/15 7:36:21 Start Date: 01/25/15 Status: Ordered Multivitamins with Folic Acid 1 mg oral tablet 1 tablet, By Mouth, Daily, # 90 tablet, 0 Refills, Maintenance, 07/08/20 5:08:00 EDT, Tablet, [facility] #[id number], 1 tablet By Mouth Daily, 72.2, kg, 07/07/20 18:40:00 EDT, Dry Weight Start Date: 07/08/20 Status: Ordered Risperdal Tablet By Mouth, Daily, Maintenance, 08/02/15 10:41:04 Start Date: 08/02/15 Status: Ordered trazodone 50 mg oral tablet 2 tablet = 100 mg, By Mouth, Daily at bedtime, 0 Refills, Maintenance, 01/25/15 7:36:48 Start Date: 01/25/15 Status: Ordered Problem List Condition Confirmation Course Effective Dates Status H ealth Status Informant Autism 1 Confirmed Active Developmental delay 2 Confirmed Active H/O Pseudoseizures Confirmed 2014 Active H/O (PTSD) Confirmed Active COVID-19 vaccine series completed Confirmed Active Anxiety and depression 3 Confirmed Active 1Pt reports this DX at time of OB intake visit. 2CIS charting: Neuro consult of 2014 3Pt reports during OB intake visit that she is currently has bi-weekly therapy sessions. Pt reports no meds at time of this writing. Social History Social History Type Response Smoking Status Never smoker entered on: 01/25/15 Sex Patient Care team information Care Team Personnel Name: Abby Austin MD Position: [facility] General Pediatrics MD Member Role: PCP Address: Address: [address] [place], [place] [address]jos[address] [place] [address]- Name: Jj Rubin MD Position: [facility] Psychiatry MD Member Role: Lifetime Consulting Physician Address: Address: [address] [place] [address]- Care Team Related Persons Name: NII PASCAL DCF WORKER Address: home [address] [place] [address] Name: ROSENDO BOSE Address: home [address] [place] [address] Name: TONY MILLS Address: home [address] [place] [address] Name: YASHIRA MENDEZ Address: home [address] [place] [address]
--- OUTSIDE RECORDS SUMMARY | 2024-06-28 01:27 | XMS_ITS | Continuity of Care Document ---
Author Organization [facility] ter Address [address] [place] [address]- Care Team Providers Care Repairer Finished Metal Name Role Phone Geovanna CONTRERAS, Abby Johnson Primary Care Physici an Encounter [facility] Date(s): 07/06/20 - 07/06/[address] [address]- [facility] Discharge Disposition: Discharge Spec Fac/Child or Cancer Ctr Attending Physician: Migel Bill MD Admitting Physician: Migel Bill MD Referring Physician: Not on Staff, Referring MD Allergies, Adverse Reactions, Alerts No Known Medication [...] Maintenance, 05/21/16 15:50:26, Route to Pharmacy Electronically, [id number], [facility] [id number] Start Date: 05/21/16 Stop Date: 08/19/16 Status: Ordered Risperdal Tablet By Mouth, Daily, Maintenance, 08/02/15 10:41:04 Start Date: 08/02/15 Status: Ordered trazodone 50 mg oral tablet 2 tablet = 100 mg, By Mouth, Daily at bedtime, 0 Refills, Maintenance, 01/25/15 7:36:48 Start Date: 01/25/15 Status: Ordered Problem List Condition Effective Dates Status Health Status Inform ant Depo-Provera contraceptive status(Confirmed) Active Pseudoseizures(Confirmed) Active Vertigo(Confirmed) Active Vital Signs Most recent to oldest [Reference Range]: 1 2 Weight 72.7 kg (07/06/20 8:22 PM) 72.7 kg (07/06/20 7:52 PM) Oxygen Saturation [94-100 %] 99 % (07/06/20 7:52 PM) 100 % (07/06/20 7:01 PM) Pulse Rate [55-90 bpm] 67 bpm (07/06/20 7:52 PM) 72 bpm (07/06/20 7:01 PM) Blood Pressure [90-138/55-84 mm Hg] 140/ 104mm Hg *H* (07/06/20 7:52 PM) Respiratory Rate [16-30 br/min] 22 br/mi n (07/06/20 7:52 PM) 16 br/min (07/06/20 7:01 PM) Temperature [96.8-100.4 DegF] 98.1 DegF (07/06/20 7:52 PM) Mode of Delivery (Oxygen) Room air (07/06/20 7:52 PM) Blood pressure sites Arm, right (07/06/20 7:52 PM) Temperature Route Oral (07/06/20 7:52 PM) Dry Weight 72.7 kg (07/06/20 8:22 PM) 72.7 kg (07/06/20 7:52 PM) Weight Obtained Via Standing scale (07/06/20 7:52 PM) Social History Social History Type Response Smoking Status Never smoker entered on: 01/25/15 Sex
--- OUTSIDE RECORDS SUMMARY | 2024-06-28 01:27 | XMS_ITS | Continuity of Care Document ---
Author Organization [facility] Address [address] [place] [address]- Care Team Providers Care Composing Room Supervisor Name Role Phone Geovanna CONTRERAS, Abby Johnson Primary Care Physici an Encounter [facility] Date(s): 07/08/20 - 08/07/[address] [address]- [facility] Allergies, Adverse Reactions, Alerts No Known Medication [...] Maintenance, 05/21/16 15:50:26, Route to Pharmacy Electronically, [id number], [facility] [id number] Start Date: 05/21/16 Stop Date: 08/19/16 Status: Ordered Multivitamins with Folic Acid 1 mg oral tablet 1 tablet, By Mouth, Daily, # 90 tablet, 0 Refills, Maintenance, 07/08/20 5:08:00 EDT, Tablet, [facility] #[id number], 1 tablet By Mouth Daily, 72.2, kg, [...]
--- OUTSIDE RECORDS SUMMARY | 2024-06-28 01:27 | XMS_ITS | Continuity of Care Document ---
Author Organization [facility] ter Address [address] [place] [address]- Care Team Providers Care Flat Knitter Helper Name Role Phone Geovanna CONTRERAS, Abby Johnson Primary Care Physici an [id number] Date(s): 03/17/20 - 03/17/[address] [address]- [facility] Encounter Diagnosis Agitation(Final) - 03/17/20 Discharge Disposition: A-D/C Home Attending Physician: Kathe Nails MD Admitting Physician: Kathe Nails MD Referring Physician: Not on Staff, Referring [...] Maintenance, 05/21/16 15:50:26, Route to Pharmacy Electronically, [id number], [facility] [id number] Start Date: 05/21/16 Stop Date: 08/19/16 Status: [...] recent to oldest [Reference Range]: 1 2 3 Oxygen Saturation [94-100 %] 99 % (03/17/20 8:21 AM) 99 % (03/17/20 5:04 AM) 99 % (03/17/20 1:14 AM) Pulse Rate [55-90 bpm] 77 bpm (03/17/20 8:21 AM) 79 bpm (03/17/20 5:04 AM) 94 bpm *H* (03/17/20 1:14 AM) Blood Pressure [90-138/55-84 mm Hg] 102/48mm Hg (03/17/20 8:21 AM) 131/79mm Hg (03/17/20 5:04 AM) 133/82mm Hg (03/17/20 1:14 AM) Respiratory Rate [16-30 br/min] 20 br/min (03/17/20 8:21 AM) 16 br/min (03/17/20 5:04 AM) 18 br/min (03/17/20 1:14 AM) Temperature [96.8-100.4 DegF] 99.1 DegF (03/17/20 8:21 AM) 98.5 DegF (03/17/20 1:14 AM) Mode of Delivery (Oxygen) Room air (03/17/20 8:21 AM) Room air (03/17/20 5:04 AM) Room air (03/17/20 1:14 AM) Blood pressure sites Arm, right (03/17/20 8:21 AM) Arm, left (03/17/20 5:04 AM) Arm, left (03/17/20 1:14 AM) Temperature Route Oral (03/17/20 8:21 AM) Oral (03/17/20 1:14 AM) Social History Social History Type Response Smoking Status Never smoker entered on: 01/25/15 Sex
--- OUTSIDE RECORDS SUMMARY | 2024-06-28 01:27 | XMS_ITS | Continuity of Care Document ---
Author Organization [facility] Address [address] [place] [address]- Care Team Providers Care Prototyper Name Role Phone Geovanna CONTRERAS, Abby Johnson Primary Care Physici an [id number] Date(s): 09/13/22 - 11/10/[address] [address]- Attending Physician: Yimi CONTRERAS [OB], Sumaya Haider Admitting Physician: Yimi CONTRERAS [OB], Sumaya Haider Referring Physician: Emmanuel JI CNM, Kayce Archuleta Allergies, Adverse Reactions, Alerts No Known Medication Allergies Medications Adderall 20 mg oral tablet 1 tablet = 20 mg, By Mouth, 2 times a day, 0 Refills, Maintenance, 01/25/15 7:36:21 Start Date: 01/25/15 Status: Ordered Multivitamins with Folic Acid 1 mg oral tablet 1 tablet, By Mouth, Daily, # 90 tablet, 0 Refills, Maintenance, 07/08/20 5:08:00 EDT, Tablet, [facility] #[id number], 1 tablet By Mouth Daily, 72.2, kg, [...] intake visit. 2CIS charting: Neuro consult of 2015 3Pt reports during OB intake visit that she is currently has bi-weekly therapy sessions. Pt reports no meds at time of this writing. Social History Social History Type Response Smoking Status Never smoker entered on: 01/25/15 Sex Patient Care team information Care Team Personnel Name: Abby Austin MD Position: [facility] General Pediatrics MD Member Role: PCP Address: Address: [address] [place] [address] Abby Johnson. [place] [address]- Name: Jj Rubin MD Position: [facility] Psychiatry MD Member Role: Lifetime Consulting Physician Address: Address: [address] [place] [address]- Care Team Related Persons Name: NII PASCAL DCF WORKER Address: home [address] [place] [address] Name: ROSENDO BOSE Address: [address] [place] [address] Name: TONY MILLS Address: [address] [place] [address] Name: YASHIRA MENDEZ Address: home [address] [place] [address]
--- OUTSIDE RECORDS SUMMARY | 2024-06-28 01:27 | XMS_ITS | Continuity of Care Document ---
Author Organization [facility] ter Address [address] [place] [address]- Care Team Providers Care Glost Kiln Placer Name Role Phone Geovanna CONTRERAS, Abby N Primary Care Physici an Encounter [facility] Date(s): 07/06/20 - 07/13/[address] [address]- [facility] Attending Physician: Anam Crouch MD Allergies, Adverse Reactions, Alerts No Known [...] Maintenance, 05/21/16 15:50:26, Route to Pharmacy Electronically, [id number], [facility] [id number] Start Date: 05/21/16 Stop Date: 08/19/16 Status: Ordered Multivitamins with Folic Acid 1 mg oral tablet 1 tablet, By Mouth, Daily, # 90 tablet, 0 Refills, Maintenance, 07/08/20 5:08:00 EDT, Tablet, [facility] #[id number], 1 tablet By Mouth Daily, 72.2, kg, [...]
--- OUTSIDE RECORDS SUMMARY | 2024-06-28 01:27 | XMS_ITS | Continuity of Care Document ---
Author Organization [facility] Address [address] [place] [address]- Care Team Providers Care Pre Owned Sales Manager Name Role Phone Geovanna CONTRERAS, Abby Johnson [id number] Date(s[facility] 09/29/22 - 11/04/[address] [address]- Attending Physician: Martha Trivedi DO Admitting Physician: Martha Trivedi DO Referring Physician: Emmanuel JI CNM, Kayce Archuleta [...] 0 Refills, Maintenance, 07/08/20 5:08:00 EDT, Tablet, [facility] #[id number], 1 tablet By Mouth Daily, 72.2, kg, [...] Team Personnel Name: Abby Austin MD Position: [facility] General Pediatrics MD Member Role: PCP Address: Address: [address] [place], [place] [address]jos[address] Johnson. [place] [address]- Name: Jj Rubin MD Position: [facility] Psychiatry MD Member Role: Lifetime Consulting Physician Address: Address: [address] [place] [address]- Care Team Related Persons Name: NII PASCAL DCF WORKER Address: home [address] [place] [address] Name: ROSENDO BOSE Address: home [address] [place] [address] Name: TONY MILLS Address: [address] [place] [address] Name: YASHIRA MENDEZ Address: home [address] [place] [address]
[2024-06-28 01:55] LABS: ABG Refer to POC result
[2024-06-28] MEDS: Sodium Bicarbonate 8.4% 150 MEQ in Dextrose 5 % 850 ML 100 MEQ IV (02:00)
[2024-06-28 02:11] LABS: Hematocrit 32.2 % (37.0-47.0); Mean Corpuscular HGB Conc 31.1 g/dl (31.0-35.0); Mean Corpuscular Hemoglobin 23.3 pg (27.0-33.0); Mean Corpuscular Volume 74.9 fL (80.0-98.0); Mean Platelet Volume 9.7 fL (9.4-12.3); Platelet Count 387 X10*3/uL (160-400); Red Cell Distribution Width 18.2 % (11.0-16.0); White Blood Count 9.4 X10*3/uL (4.8-10.8)
--- NOTE | 2024-06-28 02:21 | PC.NURSE ---
pt transferred to icu handover to redd siegel. nad at time of transfer pt axox4 speaking full clear sentences.
[2024-06-28 02:23] LABS: Glucose, Whole Blood 147 mg/dL (60-115)
[2024-06-28 02:33] LABS: Band Neutrophils Percent 14 % (3-5); Lymphocytes Absolute Manual 0.2 X10*3/uL (1.2-4.9); Lymphocytes Percent Manual 2 % (20-40); Metamyelocytes Absolute 0.2 X10*3/uL; Metamyelocytes Percent 2 %; Monocytes Absolute Manual 0.2 X10*3/uL (0.1-1.2); Monocytes Percent Manual 2 % (2-11); Myelocytes Absolute 0.1 X10*/uL; Myelocytes Percent 1 %; Neutrophils Absolute Manual 8.7 X10*3/uL (2.0-8.3); Neutrophils Percent Manual 79 % (45-73)
[2024-06-28 02:34] LABS: Giant Platelet PRESENT; Large Platelet PRESENT; Macrocytosis 2+ (15-30) /OIF; Platelet Estimate SLIGHTLY INCREASED (NORMAL); Platelet Morphology Comment NOTED; RBC Morphology NOTED
[2024-06-28 02:35] LABS: Ovalocytes 2+ (15-30) /OIF
[2024-06-28 02:37] LABS: Alanine Aminotransferase 45 U/L (0-31); Albumin Level 3.5 g/dL (3.5-5.0); Alkaline Phosphatase 50 U/L (39-117); Anion Gap 11 (12-20); Aspartate Amino Transferase 39 U/L (5-31); Blood Urea Nitrogen 13 mg/dL (9-16); Calcium 7.7 mg/dL (8.4-10.2); Carbon Dioxide 21 mmol/L (22-29); Chloride 112 mmol/L (96-108); Creatinine Clr Calc Pharmacy 135.4; Estimated Glomerular Filt Rate > 60; Glucose Random 153 mg/dL (60-115); Iron < 7 mcg/dL (30-160); Magnesium 1.6 mg/dL (1.6-2.6); Percent Iron Saturation 3 % (15-50); Phosphorus 3.2 mg/dL (2.7-4.5); Potassium 4.3 mmol/L (3.3-5.1); Sodium 140 mmol/L (135-145); Total Iron Binding Capacity 255 mcg/dL (228-428); Unsaturated Iron Binding 248 ug/dL
[2024-06-28] MEDS: Naloxone HCl 5 MG in Dextrose 5 % 95 ML 10 MG IV (03:35)
--- NOTE | 2024-06-28 03:54 | PM.CCN ---
Critical Care Event Note Summary Date of Service: 06/28/24 Code activated: No Narrative: This case had a high probability of a clinically significant, sudden, or life threatening deterioration of this patient's condition which required my full and direct attention, intervention and personal management. Critical Care Time (minutes): 75 Comment: Clinical Precedent: 23-year-old female who claims no past medical history and no prior drug abuse, presents to us after being admitted to the Internal Medicine Services being seen in the ER as she was found in an alley with an O2 sat of 70%.? Patient was given 12 mg of Narcan intranasally followed by 4 mg in the ER.? Reportedly the patient stated that she has never used drugs before but today she had sniffed a bag of heroin.? At the time she was hypotensive with blood pressure of 87/44, she was given IV fluids.? Is known that the patient vomited in the ER and they thought that she might have aspirated. ?Initial workup reveal a white count of 18.4, H&H of 9.8 and 31.3 respectively.? Electrolytes are unremarkable and renal function is normal.? SAT and ALT are slightly elevated.? U tox is positive for opioids, fentanyl and cocaine. ?Head, cervical spine CT are negative for pathology.? Initial chest x-ray also negative for pathology.? Beta HCG <2. Patient received Rocephin and Zithromax, albuterol was admitted to the floor.? While in the ER awaiting for a bed, patient had become more somnolent, internal medicine services reached out to us due to concerns of worsening state.? A venous blood gas had been performed x2 which showed pH of 7.15, pCO2 65, PO2 56, bicarb 23. Upon my evaluation, the patient was significantly obtunded while on BiPAP which they had placed due to her CO2 retention and the fact that she did not vomit for several hours.? Although initially I thought the patient would need to be intubated for airway protection, 2nd IV was placed and 0.4 mg Narcan IV was administered, which woke the patient right up. ?Patient coughed and vomited a little bit, patient was placed on high-flow O2 which helps her maintain her sats 95%.? She is not able to give a good history, she was monitored for 15 or so minutes and she falls asleep again. ?ABG shows pH of 7.24, pCO2 46, PO2 94, bicarb 20. ?Patient will be transferred to the ICU for further observation and possible Narcan drip. PHYSICAL EXAM: VS: ?104/58, 73, 21, 93% on high-flow with a rate of 50 L FiO2 of 70. General: Obtunded and unresponsive to verbal stimuli, woke up with significant touch stimuli, subsequently much better after Narcan but falls right back asleep after 10 minutes or so Skin:? Intact, no lesions, edema, erythema, clubbing or cyanosis.? No ulcers. HEENT:? Head is normocephalic, atraumatic, pupils equal 2 mm round pinpoint bilaterally. Cardiac:? Clear S1-S2, no murmurs rubs or gallops. Pulmonary: Coarse lung sounds bilaterally with upper congestion and rhonchi mostly on the right upper and lower lobe and to a lesser degree throughout the left lung. Abdomen:? Protuberant, positive bowel sounds in all 4 quadrants.? Soft, nontender, no rebound or guarding.? Musculoskeletal:? Moving all 4 extremities upon request a major joints, there is no crepitus or tenderness.? The strength is 5/5 bilaterally and throughout all 4 extremities.? There is no leg edema , no calf tenderness , no leg asymmetry.? Gait not assessed at this point. Neurologic:? As above,? No focal deficits noted. Vascular:? 2+ pulses upper and lower extremities distally. Less than 2 seconds capillary refill of the finger and toes bilaterally. SIGNIFICANT LABORATORY DATA:? As above REVIEW OF IMAGES: Initial x-ray shows no pathology. Repeat x-ray to my view, shows diffuse haziness particularly on the right lung consistent with possible aspiration as well as ARDS picture.? Final reading by radiologist is pending. ASSESSMENT : 1. Acute heroin overdose unintentional 2. Acute hypoxic/hypercapnic respiratory failure due to the above 3. Aspiration pneumonitis with superimposed reactive ARDS picture 4. Acute metabolic acidosis 5. Pseudo hypocalcemia 6. Microcytic anemia 7. Polysubstance abuse 8. Reactive versus infectious leukocytosis PLAN OF CARE: Transfer patient to ICU, monitor vital signs, I and O's, will place her on sodium bicarb infusion at a slow rate, monitor her mental status and respiratory drive closely, if any compromise is noted, we will start her on Narcan drip.? We will continue with Zosyn, repeat labs in the morning as well as gas and lactic acid.? Add an iron panel to rule out iron deficiency anemia. ?Zofran p.r.n. Patient will need substance abuse counseling. I do not think the patient is septic, intermittently get her blood pressure will go down but this is likely due to the effects of the narcotics; however given her IBF bolus could throw her into CHF and she already has ARDS, so Albumin salt at 133cc/hr will be given x 2 bags. GI PROPHYLAXIS: ?IV ppi DVT PROPHYLAXIS:? Lovenox subQ Critical care time used for critical evaluation of this patient, diagnosis, treatment and coordination of care, review her records and documentation TOTAL CRITICAL CARE TIME 75 MIN . discussion and coordination with consultants, completely separate from any procedures performed. Patient's care was discussed in detail with Dr. Stephenson is aware of all the above as well as the plan of care for this patient.
[2024-06-28] MEDS: Albumin Human 25 % 100 ML 133.33 ML IV ×2 (04:18→05:45)
[2024-06-28 05:52] LABS: VBG Base Excess -3.8 mmol/L; VBG HCO3 21 mmol/L (22-26); VBG pCO2 39 mmHg; VBG pH 7.34 (7.32-7.43); VBG pO2 37 mmHg
[2024-06-28 05:53] LABS: Hematocrit 31.1 % (37.0-47.0); Hemoglobin 9.5 g/dl (12.0-16.0); Mean Corpuscular HGB Conc 30.5 g/dl (31.0-35.0); Mean Corpuscular Hemoglobin 22.8 pg (27.0-33.0); Mean Corpuscular Volume 74.8 fL (80.0-98.0); Platelet Count 366 X10*3/uL (160-400); Red Blood Count 4.16 X10*6/uL (4.20-5.50); Red Cell Distribution Width 17.6 % (11.0-16.0); White Blood Count 13.2 X10*3/uL (4.8-10.8)
[2024-06-28] MEDS: Piperacillin Sodium/Tazobactam 3.375 GM in 0.9 % Sodium Chloride 50 ML IV ×4 (06:02→23:40)
[2024-06-28 06:14] LABS: Alanine Aminotransferase 42 U/L (0-31); Albumin Level 4.3 g/dL (3.5-5.0); Alkaline Phosphatase 47 U/L (39-117); Anion Gap 14 (12-20); Aspartate Amino Transferase 34 U/L (5-31); Blood Urea Nitrogen 11 mg/dL (9-16); Calcium 8.4 mg/dL (8.4-10.2); Carbon Dioxide 22 mmol/L (22-29); Chloride 108 mmol/L (96-108); Creatinine Clr Calc Pharmacy 125.5; Estimated Glomerular Filt Rate > 60; Glucose Random 160 mg/dL (60-115); Potassium 4.2 mmol/L (3.3-5.1); Sodium 140 mmol/L (135-145)
[2024-06-28 06:18] LABS: Lactic Acid 3.5 mmol/L (0.5-2.0)
[2024-06-28 07:44] LABS: Band Neutrophils Percent 13 % (3-5); Lymphocytes Absolute Manual 0.4 X10*3/uL (1.2-4.9); Lymphocytes Percent Manual 3 % (20-40); Monocytes Absolute Manual 0.5 X10*3/uL (0.1-1.2); Monocytes Percent Manual 4 % (2-11); Neutrophils Absolute Manual 12.3 X10*3/uL (2.0-8.3); Neutrophils Percent Manual 80 % (45-73); Platelet Estimate NORMAL (NORMAL); RBC Morphology NOTED
[2024-06-28 07:45] LABS: Ovalocytes 1+ (5-14) /OIF; Platelet Morphology Comment NORMAL
[2024-06-28 07:49] LABS: Reflex Lactate? Lactic Acid Added
[2024-06-28] MEDS: Naloxone HCl 5 MG in Dextrose 5 % 95 ML 20 MG IV (07:50)
[2024-06-28] MEDS: 0.9 % Sodium Chloride Flush 3 ML SYRINGE IVFLUSH ×3 (08:19→19:43)
[2024-06-28] MEDS: Enoxaparin Sodium 40 MG/0.4 ML SYRINGE SUBCUT (08:19)
[2024-06-28 08:23] LABS: Venous Blood Gas Refer to POC result
[2024-06-28 08:25] LABS: VBG Base Excess -0.5 mmol/L; VBG HCO3 24 mmol/L (22-26); VBG pCO2 40 mmHg; VBG pH 7.38 (7.32-7.43); VBG pO2 76 mmHg
--- NOTE | 2024-06-28 08:37 | ECG_ITS ---
Test Reason : chest pain Blood Pressure : / mmHG Vent. Rate : 082 BPM Atrial Rate : 082 BPM P-R Int : 148 ms QRS Dur : 088 ms QT Int : 372 ms P-R-T Axes : 026 045 018 degrees QTc Int : 434 ms Normal sinus rhythm Normal ECG When compared with ECG of 10-NOV-2015 16:00, No significant change was found Referred By: Erasmo Stephenson Electronically Signed By:JOSE ANDERSON
[2024-06-28 08:45] LABS: ~Lactic Acid-LAB USE ONLY 2.6 mmol/L (0.5-2.0)
--- NOTE | 2024-06-28 09:01 | PHA.MEDREC ---
Addendum entered by Supriya Vega RPh 06/28/24 09:11: reviewed by [facility]. Original Note: Pharmacy Consult ? Medication Reconciliation Pharmacy has completed the medication reconciliation. Spoke with patient.
[2024-06-28 10:18] LABS: Reflex Lactate? 2 Y
[2024-06-28] MEDS: Lactated Ringers 1,000 ML 999 ML IV (11:10)
[2024-06-28 12:14] LABS: ~Lactic Acid-LAB USE ONLY 1.7 mmol/L (0.5-2.0)
[2024-06-28] MEDS: Naloxone HCl 2 MG/2 ML SYRINGE IVPUSH (12:46)
[2024-06-28] MEDS: Midazolam HCl/PF 2 MG/2 ML VIAL IVPUSH (12:52)
[2024-06-28] MEDS: Naloxone HCl 5 MG in Dextrose 5 % 95 ML 40 MG IV ×5 (12:55→21:48)
[2024-06-28 13:12] LABS: VBG Base Excess -0.6 mmol/L; VBG HCO3 24 mmol/L (22-26); VBG pCO2 41 mmHg; VBG pH 7.37 (7.32-7.43); VBG pO2 56 mmHg
[2024-06-28 13:14] LABS: Venous Blood Gas Refer to POC result
[2024-06-28] MEDS: levoFLOXacin/D5W 750 MG/150 ML PIGGYBACK 100 MG IV (13:20)
[2024-06-28] MEDS: ondansetron HCL 4 MG/2 ML VIAL IVPUSH (15:15)
--- NOTE | 2024-06-28 15:33 | PC.NURSE ---
Pt stated that she did not want to see her finacee, ailyn wilder. The only visitor she wanted to allow was her friend Marco. Pt also gave permission for Marco to receive updates and medical information.
--- NOTE | 2024-06-28 16:20 | PC.RT ---
RT called 14:49, p[t noted to desaturate low 60's. HFNC noited fio2 found at 40%, returned to 100% with pt recovering. Oxymask continues at 15 lpm over hfnc. Nurse present.
[2024-06-29] VITALS (31 sets, daily range): BP systolic 94–116; BP diastolic 45–70; PULSE 77–98; RESP 17–64; TEMP 36.2–37.1; O2SAT 89–99; BMI 26.4
[2024-06-29] MEDS: Naloxone HCl 5 MG in Dextrose 5 % 95 ML 40 MG IV ×4 (00:12→07:40)
[2024-06-29] MEDS: ondansetron HCL 4 MG/2 ML VIAL IVPUSH (02:49)
--- NOTE | 2024-06-29 04:09 | PC.NURSE ---
CARE ASSUMED 7PM..PATIENT NAPPING..ALERT..ORIENTED X3 WHEN AWAKENED...SOME VAGUE RESPONSES BUT CALM/CO-OPERATIVE/FOLLOWS COMMANDS..INITIALLY HI-CICI CANNULA FIO2 100% AND 50 L/M FLOW PLUS OXIMYZER MASK 15 L/M...SAO2 91-92%...TACHYPNEIC RR 30'S-40'S PER REPORT...GRADUAL IMPROVED SAO2 OVERNIGHT..OXIMYZER MASK WEANED AND EVENTUALLY D/C'D BY RT...NARCAN DRIP CONTINUES 2 MG/HR PER ICU PA...NSR..NO ECTOPY..PURWIK EXTERNAL CATHETER COLLECTING YELLOW URINE..INCONTINANT X1..REPOSITIONED IN BED AND PURWIK RE-APPLIED....DENIES SOB OR PAIN
[2024-06-29] MEDS: Piperacillin Sodium/Tazobactam 3.375 GM in 0.9 % Sodium Chloride 50 ML IV ×3 (05:13→17:00)
[2024-06-29 05:20] LABS: VBG HCO3 22 mmol/L (22-26); VBG pCO2 25 mmHg; VBG pH 7.55 (7.32-7.43); VBG pO2 125 mmHg; Venous Blood Gas Refer to POC result
[2024-06-29 05:42] LABS: Hematocrit 27.5 % (37.0-47.0); Hemoglobin 8.7 g/dl (12.0-16.0); Mean Corpuscular HGB Conc 31.6 g/dl (31.0-35.0); Mean Corpuscular Volume 72.8 fL (80.0-98.0); Mean Platelet Volume 10.3 fL (9.4-12.3); Platelet Count 383 X10*3/uL (160-400); Red Blood Count 3.78 X10*6/uL (4.20-5.50); Red Cell Distribution Width 17.7 % (11.0-16.0)
[2024-06-29 06:17] LABS: Alanine Aminotransferase 24 U/L (0-31); Albumin Level 3.9 g/dL (3.5-5.0); Alkaline Phosphatase 47 U/L (39-117); Anion Gap 11 (12-20); Aspartate Amino Transferase 25 U/L (5-31); Bilirubin Total 1.4 mg/dL (0.0-1.0); Blood Urea Nitrogen 8 mg/dL (9-16); Calcium 9.2 mg/dL (8.4-10.2); Carbon Dioxide 23 mmol/L (22-29); Chloride 108 mmol/L (96-108); Creatinine Clr Calc Pharmacy 139.8; Estimated Glomerular Filt Rate > 60; Glucose Random 113 mg/dL (60-115); Phosphorus 2.5 mg/dL (2.7-4.5); Potassium 3.5 mmol/L (3.3-5.1); Sodium 138 mmol/L (135-145); Total Protein 6.5 g/dL (6.5-8.0)
[2024-06-29 06:18] LABS: Band Neutrophils Percent 14 % (3-5); Lymphocytes Percent Manual 11 % (20-40); Neutrophils Percent Manual 75 % (45-73)
[2024-06-29 06:19] LABS: Microcytosis 1+ (5-14) /OIF; RBC Morphology NOTED
[2024-06-29 06:20] LABS: Platelet Estimate NORMAL (NORMAL)
[2024-06-29 06:21] LABS: Ovalocytes 1+ (5-14) /OIF; Schistocytes 1+ (0-2) /OIF; Spherocytes 1+ (0-2) /OIF; Tear Drop Cells 1+ (0-2) /OIF; Toxic Vacuolation PRESENT
--- NOTE | 2024-06-29 06:33 | W.PM.CCHP ---
Procedures Date of Service Date of Service: 06/28/24
[2024-06-29 07:39] LABS: Platelet Morphology Comment NORMAL
[2024-06-29] MEDS: 0.9 % Sodium Chloride Flush 3 ML SYRINGE IVFLUSH ×2 (07:39→16:24)
--- NOTE | 2024-06-29 08:39 | P.PNCC_ITS ---
Subjective Subjective Date of Service: 06/29/24 Interval History: Continues to be on high-flow oxygen 50% at 60 L Continues to be on Narcan drip Critical Care Time (minutes): 40 Physical Exam 2 Vital Signs: Vital Signs: Last Vital Signs Temp 98.0 F 06/29/24 04:00 Pulse 85 06/29/24 07:00 Resp 54 H 06/29/24 07:19 BP 98/54 L 06/29/24 07:00 Pulse Ox 97 06/29/24 07:00 O2 Del Method High Flow Nasal C annula 06/29/24 07:00 O2 Flow Rate 40 06/29/24 07:00 FiO2 70 06/29/24 07:00 BMI result Body Mass Index 26.4 General: In somewhat acute distress, tired appearing Nutritional Appearance: well nourished and overweight Eyes: appearance normal, both eyes and all related structures; Alignment and Position: alignment normal and position normal Neck: No lymphadenopathy, no thyromegaly Resp: bilateral air entry equal, bilateral crackles heard Cardio: Regular rate, regular rhythm; Heart sounds: S1 normal heart sound present and S2 normal heart sound present GI: soft, nontender, no guarding, no hepatosplenomegaly : bladder normal to inspection, bladder normal to palpation, no renal angle tenderness Skin: no rashes or lesions noted and elasticity normal Neuro: oriented to person, oriented to place, oriented to time and moves all extremities Objective Data Labs 06/29/24 05:05 06/29/24 05:05 Labs: Laboratory Results - last 24 hr 06/28/24 06/28/24 06/28/24 08:04 11:23 13:09 WBC RBC Hgb Hct MCV MCH MCHC RDW Plt Count MPV Immature Gran % (Auto) Neut % (Auto) Lymph % (Auto) Whiteside % (Auto) Eos % (Auto) Baso % (Auto) Lymph # (Auto) [place]ites[place] # (Auto) Eos # (Auto) Baso # (Auto) Abs Immat Gran (auto) Absolute Neuts (auto) Absolute Nucleated RBC Nucleated RBC % (auto) Neutrophils % (Manual) Band Neutrophils % Lymphocytes % (Manual) Abs Neuts (Manual) Lymphocytes # (Manual) Toxic Vacuolation Platelet Estimate Plt Morphology Comment RBC Morphology Microcytosis Spherocytes Tear Drop Cells Ovalocytes Schistocytes VBG pH 7.37 VBG pCO2 41 VBG pO2 56 VBG HCO3 24 VBG O2 Saturation 88.0 VBG Base Excess -0.6 Sodium Potassium Chloride Carbon Dioxide Anion Gap BUN Creatinine Estim Creat Clear Calc Estimated GFR Random Glucose Lactic Acid F/U @ 2Hr 2.6 H* Lactic Acid F/U @ 4Hr 1.7 Calcium Phosphorus Magnesium Total Bilirubin AST ALT Alkaline Phosphatase Total Protein Albumin 06/29/24 06/29/24 05:05 05:09 WBC 18.0 H RBC 3.78 L Hgb 8.7 L Hct 27.5 L MCV 72.8 L MCH 23.0 L MCHC 31.6 RDW 17.7 H Plt Count 383 MPV 10.3 Immature Gran % (Auto) Cancelled Neut % (Auto) Cancelled Lymph % (Auto) Cancelled Whiteside % (Auto) Cancelled Eos % (Auto) Cancelled Baso % (Auto) Cancelled Lymph # (Auto) Cancelled Whiteside # (Auto) Cancelled Eos # (Auto) Cancelled Baso # (Auto) Cancelled Abs Immat Gran (auto) Cancelled Absolute Neuts (auto) Cancelled Absolute Nucleated RBC 0.000 Nucleated RBC % (auto) 0.0 Neutrophils % (Manual) 75 H Band Neutrophils % 14 H Lymphocytes % (Manual) 11 L Abs Neuts (Manual) 16.0 H Lymphocytes # (Manual) 2.0 Toxic Vacuolation PRESENT Platelet Estimate NORMAL Plt Morphology Comment NORMAL RBC Morphology NOTED Microcytosis 1+ (5-14) Spherocytes 1+ (0-2) Tear Drop Cells 1+ (0-2) Ovalocytes 1+ (5-14) Schistocytes 1+ (0-2) VBG pH 7.55 H VBG pCO2 25 VBG pO2 125 VBG HCO3 22 VBG O2 Saturation 99.0 VBG Base Excess 1.0 Sodium 138 Potassium 3.5 Chloride 108 Carbon Dioxide 23 Anion Gap 11 L BUN 8 L Creatinine 0.60 Estim Creat Clear Calc 139.8 Estimated GFR > 60 Random Glucose 113 Lactic Acid F/U @ 2Hr Lactic Acid F/U @ 4Hr Calcium 9.2 D Phosphorus 2.5 L Magnesium 2.0 Total Bilirubin 1.4 H AST 25 ALT 24 Alkaline Phosphatase 47 Total Protein 6.5 Albumin 3.9 Microbiology Microbiology Results: Microbiology 06/27/24 19:38 Blood - Venous Blood Culture - Preliminary No growth after 24 hours. 09/14/24 19:25 Blood - Venous Blood Culture - Preliminary No growth after 24 hours. Progress Note: A&P Assessment and plan (1) Heroin overdose: Status: Acute (2) Acute respiratory failure with hypoxia and hypercapnia: Status: Acute (3) Aspiration pneumonia: Status: Acute (4) Drug overdose: Status: Acute Plan Neuro: Acute encephalopathy possibly due to multiple drug overdose Her UDS was positive for cocaine, opiates and fentanyl She was placed on Narcan drip, continues to be on Narcan drip will taper it off today as tolerated Cardiac: Blood pressure stable currently previously hypotensive possibly due to hypovolemia Respiratory: Acute hypoxemic respiratory failure due to aspiration pneumonia Chest x-ray suggestive of bilateral pneumonia, cultures negative On high-flow oxygen, 50% at 60 liters/minute. She is very tachypneic. Continue Zosyn, we will discontinue levofloxacin GI: We will start on oral feeds as tolerated Renal: Normal renal function We will closely monitor I's and O's Heme: Chronic anemia, closely monitor H&H, transfuse for hemoglobin less than 7 grams/deciliter Endocrine: Blood sugars under control Sliding scale insulin as needed Infectious disease: Pancultures negative On Zosyn and levofloxacin, we will discontinue levofloxacin Musculoskeletal: Decubitus ulcer prevention protocol Lines: Peripheral Purewick Prophylaxis: Lovenox, pantoprazole Quality Stroke Does the patient have a stroke diagnosis?: No VTE Prior VTE?: No VTE Risk Level:: Medical - moderate - high VTE Device Contraindication: N/A - Device Ordered VTE Drug Contraindication: N/A - Med Ordered
[2024-06-29] MEDS: Enoxaparin Sodium 40 MG/0.4 ML SYRINGE SUBCUT (09:44)
[2024-06-29 10:53] LABS: MANUAL DIFF FLAG NO
[2024-06-29 10:55] LABS: Basophils Percent Auto 0.2 % (0-2); Hematocrit 28.2 % (37.0-47.0); Imm Gran Abs Auto 0.08 X10*3/uL (0.00-0.03); Imm Gran Pct Auto 0.4 % (0.0-0.4); Lymphocytes Absolute Auto 1.4 X10*3/uL (1.2-4.9); Lymphocytes Percent Auto 7.8 % (20-40); Mean Corpuscular HGB Conc 31.9 g/dl (31.0-35.0); Mean Corpuscular Hemoglobin 23.1 pg (27.0-33.0); Mean Corpuscular Volume 72.5 fL (80.0-98.0); Mean Platelet Volume 9.9 fL (9.4-12.3); Monocytes Absolute Auto 0.7 X10*3/uL (0.1-1.2); Monocytes Percent Auto 3.7 % (2-11); Neutrophils Percent Auto 87.9 % (45-73); Platelet Count 400 X10*3/uL (160-400); Red Blood Count 3.89 X10*6/uL (4.20-5.50); Red Cell Distribution Width 17.8 % (11.0-16.0); White Blood Count 18.2 X10*3/uL (4.8-10.8)
[2024-06-29 11:09] LABS: Alanine Aminotransferase 25 U/L (0-31); Albumin Level 3.9 g/dL (3.5-5.0); Alkaline Phosphatase 49 U/L (39-117); Anion Gap 11 (12-20); Aspartate Amino Transferase 22 U/L (5-31); Bilirubin Total 1.4 mg/dL (0.0-1.0); Blood Urea Nitrogen 8 mg/dL (9-16); Calcium 9.4 mg/dL (8.4-10.2); Carbon Dioxide 25 mmol/L (22-29); Chloride 107 mmol/L (96-108); Creatinine Clr Calc Pharmacy 135.2; Estimated Glomerular Filt Rate > 60; Glucose Random 109 mg/dL (60-115); Potassium 3.6 mmol/L (3.3-5.1); Sodium 139 mmol/L (135-145); Total Protein 6.6 g/dL (6.5-8.0)
--- NOTE | 2024-06-29 13:51 | MHC.CM.PN ---
Pt on high flow O2 in ICU: lethargic and unable to fully engage in conversation. Pt from home - no services: will need CARE team consult prior to d/c for + substance use. Unknown PCP or HCP status. CM to follow for finalization of d/c needs.
[2024-06-29] MEDS: Acetaminophen 325 MG TABLET 650 MG PO (16:57)
[2024-06-30] VITALS (15 sets, daily range): BP systolic 94–121; BP diastolic 44–67; PULSE 57–91; RESP 18–51; TEMP 36.6–37.1; O2SAT 92–98; BMI 26.1
[2024-06-30] MEDS: Piperacillin Sodium/Tazobactam 3.375 GM in 0.9 % Sodium Chloride 50 ML IV ×5 (00:49→23:47)
[2024-06-30 05:11] LABS: VBG Base Excess 1.4 mmol/L; VBG HCO3 23 mmol/L (22-26); VBG pCO2 27 mmHg; VBG pH 7.53 (7.32-7.43); VBG pO2 62 mmHg
[2024-06-30 05:13] LABS: Venous Blood Gas Refer to POC result
[2024-06-30 05:18] LABS: MANUAL DIFF FLAG NO
[2024-06-30 05:20] LABS: Basophils Percent Auto 0.1 % (0-2); Eosinophils Percent Auto 0.2 % (0-4); Hematocrit 26.9 % (37.0-47.0); Hemoglobin 8.6 g/dl (12.0-16.0); Imm Gran Abs Auto 0.08 X10*3/uL (0.00-0.03); Imm Gran Pct Auto 0.5 % (0.0-0.4); Lymphocytes Absolute Auto 2.1 X10*3/uL (1.2-4.9); Lymphocytes Percent Auto 13.1 % (20-40); Mean Corpuscular Hemoglobin 23.3 pg (27.0-33.0); Mean Corpuscular Volume 72.9 fL (80.0-98.0); Mean Platelet Volume 9.9 fL (9.4-12.3); Monocytes Absolute Auto 0.6 X10*3/uL (0.1-1.2); Monocytes Percent Auto 3.9 % (2-11); Neutrophils Absolute Auto 13.2 x10*3/uL (2.0-8.3); Neutrophils Percent Auto 82.2 % (45-73); Platelet Count 389 X10*3/uL (160-400); Red Blood Count 3.69 X10*6/uL (4.20-5.50); Red Cell Distribution Width 17.6 % (11.0-16.0); White Blood Count 16.1 X10*3/uL (4.8-10.8)
[2024-06-30 05:38] LABS: Alanine Aminotransferase 18 U/L (0-31); Albumin Level 3.8 g/dL (3.5-5.0); Alkaline Phosphatase 49 U/L (39-117); Anion Gap 13 (12-20); Aspartate Amino Transferase 17 U/L (5-31); Bilirubin Total 1.3 mg/dL (0.0-1.0); Blood Urea Nitrogen 11 mg/dL (9-16); Carbon Dioxide 23 mmol/L (22-29); Chloride 106 mmol/L (96-108); Creatinine Clr Calc Pharmacy 149.8; Estimated Glomerular Filt Rate > 60; Glucose Random 92 mg/dL (60-115); Magnesium 2.1 mg/dL (1.6-2.6); Phosphorus 2.6 mg/dL (2.7-4.5); Potassium 3.4 mmol/L (3.3-5.1); Sodium 139 mmol/L (135-145); Total Protein 6.6 g/dL (6.5-8.0)
[2024-06-30] MEDS: Sodium,Potassium Phosphates POWD.PACK 2 PACKET PO (06:08)
--- NOTE | 2024-06-30 08:25 | PM.CCPN ---
Subjective Subjective Date of Service: 06/30/24 Critical Care Time (minutes): 40 Comment: Feeling better this morning FiO2 down to 55% at 40 liters/minute Physical Exam Vital Signs: Vital Signs: Last Vital Signs Temp 98.6 F 06/30/24 03:00 Pulse 70 06/30/24 07:00 Resp 30 H 06/30/24 07:38 BP 101/51 L 06/30/24 07:00 Pulse Ox 94 06/30/24 07:00 O2 Del Method High Flow Nasal C annula 06/30/24 07:00 O2 Flow Rate 35 06/30/24 07:00 FiO2 45 06/30/24 07:00 BMI result Body Mass Index 26.1 General: Not in acute distress Nutritional Appearance: well nourished and overweight Eyes: appearance normal, both eyes and all related structures; Alignment and Position: alignment normal and position normal Neck: No lymphadenopathy, no thyromegaly Resp: bilateral air entry equal, bilateral significant added sounds present Cardio: Regular rate, regular rhythm; Heart sounds: S1 normal heart sound present and S2 normal heart sound present GI: soft, nontender, no guarding, no hepatosplenomegaly : bladder normal to inspection, bladder normal to palpation, no renal angle tenderness Skin: no rashes or lesions noted and elasticity normal Neuro: oriented to person, oriented to place, oriented to time and moves all extremities Objective Data Labs 06/30/24 05:00 06/30/24 04:59 Labs: Laboratory Results - last 24 hr 06/29/24 06/30/24 06/30/24 10:48 04:59 05:00 WBC 18.2 H 16.1 H RBC 3.89 L 3.69 L Hgb 9.0 L 8.6 L Hct 28.2 L 26.9 L MCV 72.5 L 72.9 L MCH 23.1 L 23.3 L MCHC 31.9 32.0 RDW 17.8 H 17.6 H Plt Count 400 389 MPV 9.9 9.9 Immature Gran % (Auto) 0.4 0.5 H Neut % (Auto) 87.9 H 82.2 H Lymph % (Auto) 7.8 L 13.1 L Dent % (Auto) 3.7 3.9 Eos % (Auto) 0.0 0.2 Baso % (Auto) 0.2 0.1 Lymph # (Auto) 1.4 2.1 Dent # (Auto) 0.7 0.6 Eos # (Auto) 0.0 0.0 Baso # (Auto) 0.0 0.0 Abs Immat Gran (auto) 0.08 H 0.08 H Absolute Neuts (auto) 16.0 H 13.2 H Absolute Nucleated RBC 0.000 0.000 Nucleated RBC % (auto) 0.0 0.0 VBG pH 7.53 H VBG pCO2 27 VBG pO2 62 VBG HCO3 23 VBG O2 Saturation 94.0 VBG Base Excess 1.4 Sodium 139 139 Potassium 3.6 3.4 Chloride 107 106 Carbon Dioxide 25 23 Anion Gap 11 L 13 BUN 8 L 11 Creatinine 0.62 0.56 Estim Creat Clear Calc 135.2 149.8 Estimated GFR > 60 > 60 Random Glucose 109 92 Calcium 9.4 9.0 Phosphorus 2.6 L Magnesium 2.1 Total Bilirubin 1.4 H 1.3 H AST 22 17 ALT 25 18 Alkaline Phosphatase 49 49 Total Protein 6.6 6.6 Albumin 3.9 3.8 Microbiology Microbiology Results: Microbiology 06/27/24 19:38 Blood - Venous Blood Culture - Preliminary No growth after 48 hours. 06/27/24 19:25 Blood - Venous Blood Culture - Preliminary No growth after 48 hours. Progress Note: A&P Assessment and plan (1) Heroin overdose: Status: Acute (2) Acute respiratory failure with hypoxia and hypercapnia: Status: Acute (3) Aspiration pneumonia: Status: Acute (4) Drug overdose: Status: Acute Plan Neuro: Acute encephalopathy possibly due to multiple drug overdose, is improving Her UDS was positive for cocaine, opiates and fentanyl Off Narcan drip since yesterday morning will add clonazepam 0.25 BID due to concerns for withdrawals addiction medicine consulted, Michelle saw the patient this morning Cardiac: Blood pressure stable over the past 2 days previously hypotensive possibly due to hypovolemia Respiratory: Acute hypoxemic respiratory failure due to aspiration pneumonia Chest x-ray suggestive of bilateral pneumonia, cultures negative On high-flow oxygen, 55% at 40 liters/minute. Continue Zosyn for antibiotic coverage GI: on oral feeds as tolerated Renal: Normal renal function We will closely monitor I's and O's Heme: Chronic anemia, closely monitor H&H, transfuse for hemoglobin less than 7 grams/deciliter Endocrine: Blood sugars under control Sliding scale insulin as needed Infectious disease: Pancultures negative On Zosyn for aspiration pneumonia as she is needing significant oxygen requirement Musculoskeletal: Decubitus ulcer prevention protocol Lines: Peripheral Purewick Prophylaxis: Lovenox, pantoprazole Quality Stroke Does the patient have a stroke diagnosis?: No VTE Prior VTE?: No VTE Risk Level:: Medical - moderate - high VTE Device Contraindication: N/A - Device Ordered VTE Drug Contraindication: N/A - Med Ordered
[2024-06-30] MEDS: bisacodyL 5 MG TABLET.DR 10 MG PO (08:49)
[2024-06-30] MEDS: Omeprazole 20 MG CAPSULE.DR PO (08:49)
[2024-06-30] MEDS: Enoxaparin Sodium 40 MG/0.4 ML SYRINGE SUBCUT (08:49)
[2024-06-30] MEDS: 0.9 % Sodium Chloride Flush 3 ML SYRINGE IVFLUSH ×3 (08:50→21:11)
[2024-06-30] MEDS: predniSONE 20 MG TABLET 40 MG PO (08:52)
--- NOTE | 2024-06-30 10:56 | PC.NURSE ---
report called to RAFITA pierre on med/tele floor. pt stable at time of transfer. transported out of ICU @ 1030.
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
--- NOTE | 2024-06-30 14:41 | PM.EVENT ---
Event Note Date of Service: 06/30/24 Event Note: This patient is seen and examined by ICU, seen again this morning says sob somewhat improving from yesterday. wbc improving , no fevers . imaging:Extensive heterogeneous bilateral airspace opacities, new from prior and suspicious for edema versus developing ARDS in the proper clinical setting. Physical exam and assessment and plan coordinated in APCs note, Agree with the plan in addition: Acute hypoxemic respiratory failure due to aspiration pneumonia-on high-flow, IV antibiotics, acute toxic metabolic encephalopathy seems to be improving Addiction consulted considering substance use. Time Spent With Patient Time: Total time managing care of this patient today ____ minutes.
[2024-06-30] MEDS: guaiFENesin 200 MG/10 ML 10 ML LIQUID PO (23:47)
[2024-07-01] VITALS (7 sets, daily range): BP systolic 99–113; BP diastolic 51–59; PULSE 44–70; RESP 18–23; TEMP 35.8–37; O2SAT 90–99
[2024-07-01] MEDS: Omeprazole 20 MG CAPSULE.DR PO (05:42)
[2024-07-01] MEDS: Piperacillin Sodium/Tazobactam 3.375 GM in 0.9 % Sodium Chloride 50 ML IV ×3 (05:42→18:43)
[2024-07-01] MEDS: guaiFENesin 200 MG/10 ML 10 ML LIQUID PO ×2 (05:50→21:14)
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
[2024-07-01] MEDS: predniSONE 20 MG TABLET 40 MG PO (09:31)
[2024-07-01] MEDS: Doxycycline Monohydrate 100 MG CAPSULE PO ×2 (09:31→21:14)
[2024-07-01] MEDS: Enoxaparin Sodium 40 MG/0.4 ML SYRINGE SUBCUT (09:32)
[2024-07-01] MEDS: 0.9 % Sodium Chloride Flush 3 ML SYRINGE IVFLUSH ×3 (09:32→21:14)
--- NOTE | 2024-07-01 11:02 | MHC.CM.PN ---
EMR REVIEWED, PER PULONOLOGY NOTES PT SHOULD REMAIN ON IV PREDNISONE AND FOR 24HRS AND CAN TRANSITION TO PO, ANTIC PT WILL DC HOME NO SERVICES ONCE MEDICALLY CLEARED, CM WILL CONT TO FOLLOW.
--- NOTE | 2024-07-01 16:48 | P.PNIM_ITS ---
Subjective Subjective Date of Service: 07/01/24 Interval History: Hypoxia Review of Systems Patient says the shortness of breath is somewhat better than yesterday, Denies any fever or chills Physical Exam 2 Vital Signs: Vital Signs: Last Vital Signs Temp 96.4 F L 07/01/24 15:36 Pulse 65 07/01/24 15:36 Resp 23 H 07/01/24 15:36 BP 113/57 L 07/01/24 15:36 Pulse Ox 98 07/01/24 15:36 O2 Del Method Oxymask 07/01/24 15:36 O2 Flow Rate 5 07/01/24 12:00 FiO2 45 06/30/24 08:00 BMI result Body Mass Index 26.1 Appearance: Alert.? Oriented X3.? cvs: rrr, [id number] . res: sir entry joel,has few scattered rhonchii b/l abd: no rebound or guarding ,nt, bs present. ext pulses present , no cyanosis . neuro: axo3 , nonfocal. Objective Data Active Medications Acetaminophen (Acetaminophen 325 Mg Tablet) 975 mg PO Q6H PRN PRN Reason: Pain, Mild (Pain Scale 1-3), fever or headache Albuterol Sulfate (Albuterol Sulfate (0.083%) 2.5 Mg/3 Ml Vial.Neb) 2.5 mg INHALE Q3H PRN PRN Reason: Shortness of Breath/Wheezing Clonazepam (Clonazepam 0.125 Mg Tab.Rapdis) 0.25 mg PO BID [facility] Last Admin: 07/01/24 09:30 Dose: 0.25 mg Documented By: SAMSON Doxycycline Monohydrate (Doxycycline Monohydrate 100 Mg Capsule) 100 mg PO Q12H [facility] Last Admin: 07/01/24 09:31 Dose: 100 mg Documented By: SAMSON Enoxaparin Sodium (Enoxaparin Sodium 40 Mg/0.4 Ml Syringe) 40 mg SUBCUT Q24H [facility] Last Admin: 07/01/24 09:32 Dose: 40 mg Documented By: SAMSON Guaifenesin (Guaifenesin 200 Mg/10 Ml 10 Ml Liquid) 10 ml PO Q4H PRN PRN Reason: Cough Last Admin: 07/01/24 05:50 Dose: 10 ml Documented By: COY Comments: cough Piperacillin Sod/Tazobactam (Sod 3.375 gm/ Sodium Chloride) 50 mls @ 100 mls/hr IV Q6H [facility] Last Infusion: 07/01/24 13:12 Dose: Infused Documented By: SAMSON Omeprazole (Omeprazole 20 Mg Capsule.Dr) 20 mg PO DAILY@0630 [facility] Last Admin: 07/01/24 05:42 Dose: 20 mg Documented By: COY Ondansetron HCl (Ondansetron Hcl 4 Mg/2 Ml Vial) 4 mg IVPUSH Q4H PRN PRN Reason: Nausea and Vomiting Last Admin: 06/29/24 02:49 Dose: 4 mg Documented By: MARTA Prednisone (Prednisone 20 Mg Tablet) 40 mg PO DAILY [facility] Last Admin: 07/01/24 09:31 Dose: 40 mg Documented By: SAMSON Sodium Chloride (0.9 % Sodium Chloride Flush 3 Ml Syringe) 3 ml IVFLUSH QSHIFT [facility] Last Admin: 07/01/24 09:32 Dose: 3 ml Documented By: SAMSON Labs 06/30/24 05:00 06/30/24 04:59 Assessment and Plan (1) Acute respiratory failure with hypoxia and hypercapnia: Status: Acute (2) Aspiration pneumonia: Status: Acute Plan Acute toxic metabolic encephalopathy possibly due to multiple drug overdose, is improving Mental status improving Her UDS was positive for cocaine, opiates and fentanyl-was on Narcan drip in ICU, off Narcan drip from 2 days. Continue clonazepam 0.25 BID due to concerns for withdrawals addiction medicine consulted, Michelle saw the patient this morning Acute hypoxemic respiratory failure due to aspiration pneumonia Chest x-ray suggestive of bilateral pneumonia, cultures negative Tapered Off high-flow today, now on 5 L oxygen via nasal cannula Continue Zosyn for antibiotic coverage, slowly taper off nasal cannula oxygen Substance use: Addiction consult. Chronic anemia: Denies any bleed grossly, closely monitor H&H, transfuse for hemoglobin less than 7 grams/deciliter Prophylaxis: Lovenox, pantoprazole Ongoing hospitalization stay need: Acute hypoxemic respiratory failure-need oxygen, IV antibiotics, also needs to be monitor closely for respiratory and mental status. Addiction evaluation for drug use. Quality Stroke Does the patient have a stroke diagnosis?: No VTE Prior VTE?: No VTE Risk Level:: Medical - moderate - high VTE Device Contraindication: N/A - Device Ordered VTE Drug Contraindication: N/A - Med Ordered
[2024-07-02] MEDS: Piperacillin Sodium/Tazobactam 3.375 GM in 0.9 % Sodium Chloride 50 ML IV ×2 (00:45→06:26)
[2024-07-02 03:12] VITALS: BP 112/53; PULSE 50; RESP 18; TEMP 36.6; O2SAT 96
[2024-07-02] MEDS: Omeprazole 20 MG CAPSULE.DR PO (06:26)
[2024-07-02 07:09] VITALS: BP 104/56; PULSE 54; RESP 18; TEMP 36.9; O2SAT 94
[2024-07-02] MEDS: predniSONE 20 MG TABLET 40 MG PO (09:23)
[2024-07-02] MEDS: Doxycycline Monohydrate 100 MG CAPSULE PO (09:23)
[2024-07-02] MEDS: Sodium,Potassium Phosphates POWD.PACK 1 PACKET PO (09:24)
[2024-07-02] MEDS: 0.9 % Sodium Chloride Flush 3 ML SYRINGE IVFLUSH (09:25)
[2024-07-02 09:50] VITALS: O2SAT 96
--- NOTE | 2024-07-02 12:06 | MHC.CM.PN ---
Per MD rounds patient threatening to leave AMA. requesting contact info for friend Marco. The [employer] spray unit feeder obtained the #[phone] from caller ID, when Marco called here to speak with the patient. reports that he called #, no answer. CM will continue to follow.
--- NOTE | 2024-07-02 14:28 | P.DS_ITS ---
DS: Providers Provider Date of Service: 07/02/24 Date of admission: 06/27/24 22:50 Date of discharge: 07/02/24 Primary care physician: Unknown Physician Consults: 06/27/24 22:52 Addiction Medicine Routine Consulting Provider: Addiction Covering Reason for consultation: Heroin abuse Has provider been notified: No 06/30/24 07:25 Consult to Pulmonology Routine Consulting Provider: [facility] Pul[facility] Reason for consultation: acute hypoxemic respirtaory failure Has provider been notified: No 07/02/24 09:21 Consult to Psychiatry Routine Consulting Provider: Psych Covering Reason for consultation: Capacity Eval -wants to leave AMA Has provider been notified: No Attending physician on discharge: Michelle Zuñiga Discharging clinician: Michelle Zuñiga DS: Diagnosis Discharge Diagnosis (1) Acute respiratory failure with hypoxia and hypercapnia: Status: Acute (2) Aspiration pneumonia: Status: Acute DS: Summary Hospital Course Hospital Course: HPI: 23 years old woman with no significant past medical history was brought to the emergency department after she was found unresponsive in an alleyway. She was found to have an oxygen saturation of 70% on room air by EMS. Patient stated that she sniffed a bag of heroin today. She denied prior history of illicit drug use. She denied use of other drugs illicit drug, alcohol, tobacco or marijuana. Per EMS, she was given 12 mg of intranasal Narcan. She denied any headache, dizziness, sore throat, chest pain or cough. She also denies fever or chills. Did not report any acute gastrointestinal or genitourinary symptoms. In the ED, she was found to have an oxygen saturation of 70% on room air blood pressure 87/44. There is no tachycardia or fever. She is currently on high- flow. Blood workup was remarkable for leukocytosis of 18.4. Hemoglobin is 9.8. There is no lactic acidosis or electrolyte imbalances. Renal function is normal. Transaminases are mildly elevated. Bilirubin and alk-phos are normal. test is negative. Head and cervical CT scans were obtained -results are still pending. ED tx: Ceftriaxone 1 g IV, azithromycin 500 mg IV, Zofran 4 mg IV Narcan 0.4 mg IV, NS 1 L bolus, albuterol 10 mg. hospital course: Patient admitted to the hospital secondary to acute toxic metabolic encephalopathy possibly due to multiple drug overdose-she was positive for cocaine, opioid, fentanyl and required Narcan drip in ICU, also Acute hypoxemic respiratory failure due to aspiration pneumonia-given narcan drip for cocaine/opoid use , also received iv antibiotics ,brief? bipap use and subsequently high flow oxygen - seems mental status seems at baseline , hypoxia also improved this afternoon taken off oxygen ,sob improving also -patient wants to leave [facility] . we tried to explain she will benefit from iv antibiotics and steriods for more 24 hours and moniter respiratory status given above presentation-she insisits to leave [facility] , risks explained by myself and psych , she understands . ( seems has capacity,she is also said she is austistic spectrum when evaluated by psych ). patient was given po antibiotics and steriods upon dicharge. strongly advised to have pcp appointment. plan: complete po augmentin 875 mg po bid ,doxycycline 100 mg po bid for 5 days prednisone 40 mg po daily for 4 days. Above management discussed with the patient in detail length staff was present at bedside, time spent 40 minute. Time Attestation Total time managing care of this patient today: 40 mintues. Discharge Coordination Time (in mins): 40 min Quality: Safe Use of Opioids Does Pt have an Active Cancer Diagnosis on the Problem List?: No Quality: Stroke Does the patient have a stroke diagnosis?: No Physical Exam Vital Signs: Vital Signs: Last Vital Signs Temp 98.4 F 07/02/24 07:09 Pulse 54 07/02/24 07:09 Resp 18 07/02/24 07:09 BP 104/56 L 07/02/24 07:09 Pulse Ox 96 07/02/24 09:50 O2 Del Method Room Air 07/02/24 09:50 O2 Flow Rate 4 07/02/24 07:09 FiO2 45 06/30/24 08:00 BMI result Body Mass Index 26.1 Appearance: Alert.? Oriented X3.? cvs: rrr, [id number] . res: sir azalea maldonado,has few scattered rhonchii b/l abd: no rebound or guarding ,nt, bs present. ext pulses present , no cyanosis . neuro: axo3 , nonfocal. DS: Data Data Completed and Pending Labs on day of discharge: Preliminary micro results at discharge 06/27/24 19:38 Blood Culture - Preliminary Blood - Venous No growth after 48 hours. 06/27/24 19:25 Blood Culture - Preliminary Blood - Venous No growth after 48 hours. Imaging Chest x-ray: Radiologist's impression: ITS Impressions Chest X-Ray 06/27/24 18:27 IMPRESSION: No focal infiltrate or congestive heart failure is seen. Lung volumes are somewhat diminished. Electronically signed by: Ken Carnes MD 06/27/2024 09:32 PM EDT RP Cervical Spine CT 06/27/24 18:32 IMPRESSION: 1. No evidence of acute intracranial hemorrhage or edematous territorial infarction. 2. No evidence of acute fracture or traumatic subluxation of the cervical spine. Electronically signed by: Werner Beck DO 06/27/2024 11:44 PM EDT RP Head CT 06/27/24 22:20 IMPRESSION: 1. No evidence of acute intracranial hemorrhage or edematous territorial infarction. 2. No evidence of acute fracture or traumatic subluxation of the cervical spine. Electronically signed by: Werner Beck DO 06/27/2024 11:44 PM EDT RP Chest X-Ray 06/28/24 01:21 IMPRESSION: Extensive heterogeneous bilateral airspace opacities, new from prior and suspicious for edema versus developing ARDS in the proper clinical setting. Electronically signed by: Aidan Goldman MD 06/28/2024 05:55 AM EDT RP Discharge Plan Discharge Anticipated Discharge Date/Time: 07/02/24 12:34 Patient Disposition: Left Against Medical Advice Discharge Diagnosis: Acute hypoxemic respiratory failure, toxic metabolic encephalopathy, pneumonia. Heroin use Referrals: Physician,Unknown J [Primary Care Provider] - 1 Week Discharge Medications: New prednisone 20 mg Tablet 40 mg PO DAILY Qty: 8 0RF guaifenesin 100 mg/5 mL Liquid 100 mg PO Q4H PRN (Reason: Cough) Qty: 200 0RF doxycycline monohydrate 100 mg Capsule 100 mg PO Q12H Qty: 10 0RF omeprazole 20 mg Capsule,Delayed Release(Dr/Ec) 20 mg PO DAILY@0630 Qty: 30 0RF amoxicillin-pot clavulanate 875-125 mg tablet 1 tab PO BID Qty: 10 0RF Discharge Orders: Discharge Order (Routine); Ordered 07/02/24 Ordered By: Michelle Zuñiga Diet: Advance to usual diet Activity on Discharge: As tolerated Print Language: [place] Care Plan Goals: Patient admitted to the hospital secondary to acute toxic metabolic encephalopathy possibly due to multiple took overdose-she was positive for cocaine, opioid, fentanyl and required Narcan drip in ICU, also Acute hypoxemic respiratory failure due to aspiration pneumonia-seems metal status probably seems at baseline , hypoxia also improved this afternoon taken off oxygen (she i s also said she is austistic spectrum when evaluated by psych ),sob improving also -patient wants to leave [facility] ( seems has capacity). patient was given po antibiotics and steriods upon dicharge. also naloxone to take home ordered. strongly advised to have pcp appointment and repeat chest imaging in 3-4 week outpatient to see resolution of penumonia . Health Concerns: complete po augmentin 875 mg po bid ,doxycycline 100 mg po bid for 5 days prednisone 40 mg po daily for 4 days. Plan of Treatment: as above. Assessment: as above. Patient Instructions: Aspiration Pneumonia (DC), Adult Overdose (ED)
--- NOTE | 2024-07-02 14:38 | P.CNPS_ITS ---
History of Present Illness Date of Service: 07/02/2024 Chief Complaint: hypoxic respiratory failure Reason for Consult: Dom mireles to leave AMA Requesting physician: Michelle Zuñiga Discussed with referring provider: Yes Sources of Information: patient interviewed and chart reviewed HPI Narrative: Patient is a 23 year old woman with no significant past medical history was brought to the ER secondary to being found unresponsive in an alleyway. She was found to have an oxygen saturation of 70% on room air by EMS. Patient stated that she sniffed a bag of heroin; denied prior history of illicit drug use. Patient admitted to the hospital secondary to acute toxic metabolic encephalopathy possibly due to multiple drug overdose-she was positive for cocaine, opioid, fentanyl and required Narcan drip in ICU, also Acute hypoxemic respiratory failure due to aspiration pneumonia-given narcan drip for cocaine/opoid use , also received iv antibiotics. Psychiatric consult for: Dom mireles to leave AMA During assessment, pt presents alert and oriented x3. calm and cooperative. Patient was able to explain what brought her into the hospital. Patient expressed understanding of proposed treatment and understood possible complications of refusing treatment and leaving AMA. Patient denied previous substance use and stated she was pressured to use from her fiance. Patient stated, I have autism and my ex-fiance is my caregiver. I'm going to put a restraining order on him and get my mom's help . Patient reports she plans on leaving the hospital and staying with her mother who lives a few streets away from the hospital. Patient stated, I have viridiana in God, so I know I will be okay. I will take whatever pills they want to give me. I just want to go home and be with my family. My ex told me to trust him and I wish I didn't . Patient reports she will return to the hospital of not feeling well. Patient reports she plans on following up with any outpatient therapist who she used to see a year ago. She denies any hx of inpatient psychiatric hospitalizations, hx of psychiatric meds, or history of SIB/SA. Patient denies SI/HI/VH/AH. Past Psychiatric History: denies hx of inpatient psychiatric hospitalizations. Pt reports having a outpatient therapist a year ago. denies hx of psychiatric medications. denies hx of SIB/SA. Medical Evaluation Reviewed: Yes PMFSH Family History: Unknown Social History: Plans on living with her mother. Was living with ex fiance in an apartment. Substance History: Smokes marijuana daily. Trauma History: Yes Diagnostics Vital Signs (24Hr): Vital Signs - 24 hr 07/01/24 15:36 07/01/24 19:52 07/01/24 23:35 Temperature 96.4 F L 96.8 F 97.4 F Pulse Rate 65 54 44 L Respiratory Rate 23 H 18 18 Blood Pressure 113/57 L 107/55 L 102/51 L Pulse Oximetry 98 90 L 94 Oxygen Delivery Method Oxymask Room Air Oxymask Oxygen Flow Rate 5 07/02/24 03:12 07/02/24 07:09 07/02/24 09:50 Temperature 97.8 F 98.4 F Pulse Rate 50 54 Respiratory Rate 18 18 Blood Pressure 112/53 L 104/56 L Pulse Oximetry 96 94 96 Oxygen Delivery Method Oxymask Oxymask Room Air Oxygen Flow Rate 5 4 BMI result Body Mass Index 26.1 Labs 06/30/24 05:00 06/30/24 04:59 Imaging Radiology Impressions: ITS Impressions Chest X-Ray 06/27/24 18:27 IMPRESSION: No focal infiltrate or congestive heart failure is seen. Lung volumes are somewhat diminished. Electronically signed by: Ken Carnes MD 06/27/2024 09:32 PM EDT RP Cervical Spine CT 06/27/24 18:32 IMPRESSION: 1. No evidence of acute intracranial hemorrhage or edematous territorial infarction. 2. No evidence of acute fracture or traumatic subluxation of the cervical spine. Electronically signed by: Werner Beck DO 06/27/2024 11:44 PM EDT RP Head CT 06/27/24 22:20 IMPRESSION: 1. No evidence of acute intracranial hemorrhage or edematous territorial infarction. 2. No evidence of acute fracture or traumatic subluxation of the cervical spine. Electronically signed by: Werner Beck DO 06/27/2024 11:44 PM EDT RP Chest X-Ray 06/28/24 01:21 IMPRESSION: Extensive heterogeneous bilateral airspace opacities, new from prior and suspicious for edema versus developing ARDS in the proper clinical setting. Electronically signed by: Aidan Goldman MD 06/28/2024 05:55 AM EDT RP Medications Medications Current Medications Acetaminophen (Acetaminophen 325 Mg Tablet) 975 mg PO Q6H PRN PRN Reason: Pain, Mild (Pain Scale 1-3), fever or headache Albuterol Sulfate (Albuterol Sulfate (0.083%) 2.5 Mg/3 Ml Vial.Neb) 2.5 mg INHALE Q3H PRN PRN Reason: Shortness of Breath/Wheezing Clonazepam (Clonazepam 0.125 Mg Tab.Rapdis) 0.25 mg PO BID [facility] Last Admin: 07/02/24 09:26 Dose: Not Given Doxycycline Monohydrate (Doxycycline Monohydrate 100 Mg Capsule) 100 mg PO Q12H [facility] Last Admin: 07/02/24 09:23 Dose: 100 mg Enoxaparin Sodium (Enoxaparin Sodium 40 Mg/0.4 Ml Syringe) 40 mg SUBCUT Q24H [facility] Last Admin: 07/02/24 09:26 Dose: Not Given Guaifenesin (Guaifenesin 200 Mg/10 Ml 10 Ml Liquid) 10 ml PO Q4H PRN PRN Reason: Cough Last Admin: 07/01/24 21:14 Dose: 10 ml Piperacillin Sod/Tazobactam (Sod 3.375 gm/ Sodium Chloride) 50 mls @ 100 mls/hr IV Q6H [facility] Last Admin: 07/02/24 12:44 Dose: Not Given Omeprazole (Omeprazole 20 Mg Capsule.Dr) 20 mg PO DAILY@0630 [facility] Last Admin: 07/02/24 06:26 Dose: 20 mg Ondansetron HCl (Ondansetron Hcl 4 Mg/2 Ml Vial) 4 mg IVPUSH Q4H PRN PRN Reason: Nausea and Vomiting Last Admin: 06/29/24 02:49 Dose: 4 mg Potassium Phos/Sodium Phos (Sodium,Potassium Phosphates Powd.Pack) 1 packet PO QID [facility] Last Admin: 07/02/24 12:44 Dose: Not Given Prednisone (Prednisone 20 Mg Tablet) 40 mg PO DAILY [facility] Last Admin: 07/02/24 09:23 Dose: 40 mg Sodium Chloride (0.9 % Sodium Chloride Flush 3 Ml Syringe) 3 ml IVFLUSH QSHIFT [facility] Last Admin: 07/02/24 09:25 Dose: 3 ml Allergies Allergies Allergy/AdvReac Type Severity Reaction Status Date / Time No Known Allergies Allergy Verified 06/27/24 18:47 Assessment & Plan Assessment & Plan (1) Encounter for assessment of decision-making capacity: Status: Acute Code(s): Z00.8 - Encounter for other general examination Plan Psychiatric consult for: Capacity eval-wants to leave AMA During assessment, pt presents alert and oriented x3. calm and cooperative. Patient was able to explain what brought her into the hospital. Patient expressed understanding of proposed treatment and understood possible complications of refusing treatment and leaving AMA. Patient denied previous substance use and stated she was pressured to use from her fiance. Patient stated, I have autism and my ex-fiance is my caregiver. I'm going to put a restraining order on him and get my mom's help . Patient reports she plans on leaving the hospital and staying with her mother who lives a few streets away from the hospital. Patient stated, I have viridiana in God, so I know I will be okay. I will take whatever pills they want to give me. I just want to go home and be with my family. My ex told me to trust him and I wish I didn't . Patient reports she will return to the hospital of not feeling well. Patient reports she plans on following up with any outpatient therapist who she used to see a year ago. She denies any hx of inpatient psychiatric hospitalizations, hx of psychiatric meds, or history of SIB/SA. Patient denies SI/HI/VH/AH. Patient appears to have capacity for making medical decisions at this time. Total time managing care of this patient today _30___ minutes. Patient educated on: diagnosis, substance abuse and therapeutic strategies
--- NOTE | 2024-07-02 14:53 | MHC.CM.PN ---
A Psych consult was done. Patient has discharged. She arranged for transportation.
[2024-07-02] MEDS: Naloxone HCl Nasal TAKE HOME 4 MG SPRAY 8 MG NOSTRILALT (15:08)
== END 2024-07-02 15:38 | disposition left against medical advice (07) | DRG 816 ==
LOC: HO.ED 20:24 → HO.EDOVER 06-28 01:25 → HO.ICU 06-28 01:58 → HO.IMC 06-30 09:49
PROVIDERS: Internal Medicine Pulmonary Disease; Physician Assistant; Physician Assistant Medical; Admitting Provider Internal Medicine; Emergency Provider Emergency Medicine Emergency Medical Services; Visit Provider Internal Medicine
DX: T40.1X1A Poisoning by heroin, accidental (unintentional), initial encounter (principal); J69.0 Pneumonitis due to inhalation of food and vomit; G92.8 Other toxic encephalopathy; J96.01 Acute respiratory failure with hypoxia; J96.02 Acute respiratory failure with hypercapnia; E87.21 Acute metabolic acidosis; F19.10 Other psychoactive substance abuse, uncomplicated; D50.9 Iron deficiency anemia, unspecified
CPT/HCPCS: 36415; 36600; 70450; 71045; 72125; 80053; 80143; 80179; 80307; 82803; 82947; 83540; 83605; 83735; 84100; 84702; 85007; 85025; 85027; 87040; 93005; 94640; 99285; J0456; J0696; J1650; J1956; J2250; J2310; J2405; J2543; J2919; J7120; P9047

== ENCOUNTER → 2024-06-27 22:50 | Outpatient (BNV) | payer OTHER, SELFPAY | PROVIDERS: Admitting Provider Internal Medicine; Emergency Provider Emergency Medicine Emergency Medical Services; Visit Provider Physician Assistant Medical | DX: J69.0 Pneumonitis due to inhalation of food and vomit (principal); J96.01 Acute respiratory failure with hypoxia; J96.02 Acute respiratory failure with hypercapnia; T40.1X1A Poisoning by heroin, accidental (unintentional), initial encounter | CPT/HCPCS: 99291; 99292 ==

== ENCOUNTER → 2024-06-27 22:50 | Outpatient (BNV) | payer OTHER, SELFPAY | PROVIDERS: Admitting Provider Internal Medicine; Emergency Provider Emergency Medicine Emergency Medical Services; Visit Provider Registered Nurse | DX: F19.90 Other psychoactive substance use, unspecified, uncomplicated (principal) | CPT/HCPCS: 99232 ==

== ENCOUNTER → 2024-06-27 22:50 | Outpatient (BNV) | payer OTHER, SELFPAY | PROVIDERS: Admitting Provider Internal Medicine; Emergency Provider Emergency Medicine Emergency Medical Services; Visit Provider Hospitalist | DX: J96.01 Acute respiratory failure with hypoxia (principal); J96.02 Acute respiratory failure with hypercapnia; J69.0 Pneumonitis due to inhalation of food and vomit; T50.904D Poisoning by unspecified drugs, medicaments and biological substances, undetermined, subsequent encounter | CPT/HCPCS: 99223 ==

== ENCOUNTER → 2024-06-27 22:50 | Outpatient (BNV) | payer OTHER, SELFPAY | PROVIDERS: Admitting Provider Internal Medicine; Emergency Provider Emergency Medicine Emergency Medical Services; Visit Provider Internal Medicine | DX: J96.01 Acute respiratory failure with hypoxia (principal); J96.02 Acute respiratory failure with hypercapnia; J69.0 Pneumonitis due to inhalation of food and vomit | CPT/HCPCS: 99223; 99232; 99239; 99499 ==

== ENCOUNTER 2024-07-16 11:25 | Emergency (ER) | payer OTHER, SELFPAY ==
--- NOTE | ~2024-07-16 | XR_ITS ---
EXAMINATION: XR CHEST CLINICAL INFORMATION: Reason aspiration pneumonia with continued shortness of breath. The patient did not complete antibiotic treatments COMPARISON: 06/28/2024 as well as chest radiographs dating back to 2015 TECHNIQUE: 2 views of the chest were obtained. FINDINGS: There has been complete interval clearing of the diffuse patchy airspace disease seen just over 2 weeks ago on 06/28/2024 interestingly, no infiltrates were present on 06/27/2024, just 1 day before this. The lungs are now completely clear. The heart is mildly enlarged, especially when compared to 2015. No pleural effusions. XR/XR chest 2V IMPRESSION: Complete resolution of previously seen bilateral airspace disease. Given the progression of disease, is it possible that this was CHF with pulmonary edema rather than pneumonia? Electronically signed by: Sacha Go MD 07/16/2024 03:13 PM EDT
[2024-07-16 11:29] VITALS: BP 116/53; PULSE 64; RESP 16; TEMP 36.4; O2SAT 98; BMI 29.4
--- NOTE | 2024-07-16 11:30 | ED_ITS ---
HPI - Abdominal Pain General Chief Complaint: Urogenital-Female Stated Complaint: abd pain-/std testing Time Seen by Provider: 07/16/24 12:24 Source: patient, RN notes reviewed and old records reviewed Mode of arrival: ambulatory Limitations: no limitations History of Present Illness ED Provider: TANISHA WOLFE PA-C HPI narrative: 23 year old female with pmhx significant for autism presents to the ED today for evaluation of pelvic pain and dysuria x3 days. Endorses 1 episode of vomiting last night. She is requesting STI testing as she recently had unprotected intercourse with her ex-boyfriend who has been sleeping around . Admits to seeing what she believes to be a pimple on her vagina last night. Admits the area elizalde on washing with soap. Painful to sit. LMP 06/08/24. Reports chance of . Denies abdominal pain, flank pain, hematuria, vaginal discharge. Patient recently admitted to [facility] for aspiration PNA following heroin OD. Left AMA with abx. States she did not have the chance to compete the abx course as she was living in a car with another individual and her medication went missing. Patient unable to tell me how much of the prescribed medication she took. Endorses continued SOB. Admits to remote hx of asthma as a child. Has not required breathing treatments in recent years. Denies fever, chills, wheezing, dyspnea, chest pain. Related Data Previous Rx's ?Medication ?Instructions ?Recorded amoxicillin 875 mg-potassium 1 tab PO BID #10 tabs 07/02/24 clavulanate 125 mg tablet doxycycline monohydrate 100 mg 100 mg PO Q12H #10 caps 07/02/24 capsule guaifenesin 100 mg/5 mL oral liquid 100 mg (5 mL) PO Q4H PRN Cough 07/02/24 #200 mL omeprazole 20 mg capsule,delayed 20 mg PO DAILY@0630 #30 caps 07/02/24 release prednisone 20 mg tablet 40 mg (2 x 20 mg) PO DAILY #8 tabs 07/02/24 doxycycline hyclate 100 mg tablet 100 mg PO BID 14 days #28 tabs 07/16/24 metronidazole 500 mg tablet 500 mg PO BID 14 days #28 tabs 07/16/24 valacyclovir 1 gram tablet 1,000 mg PO TID 7 days #21 tabs 07/16/24 (Valtrex) Allergies Allergy/AdvReac Type Severity Reaction Status Date / Time No Known Allergies Allergy Verified 07/16/24 11:33 Review of Systems Review of Systems Constitutional: No fever, chills, fatigue, night sweats, weight changes ENT/Mouth: No ear pain, hearing loss, nasal congestion, sinus pain, rhinorrhea, sore throat Eyes: No eye pain, swelling, redness, vision changes, discharge Cardio: No chest pain, palpitations, VIRK, orthopnea, peripheral edema Pulm: No SOB, cough, sputum, wheezing, dyspnea, hemoptysis GI: No nausea, vomiting, hematemesis, abdominal pain, diarrhea, constipation, hematochezia, melena, +abd pain : No irregular bleeding, frequency, urgency, hesitancy, hematuria, urinary flow changes, urinary incontinence or retention, +flank pain, +dysuria MSK: No back pain, neck pain, joint pain, myalgias Skin: No lesions, rashes Neuro: No weakness, numbness, paresthesias, LOC, dizziness, headache Psych: No anxiety/panic, depression, SI/HI, AH/VH All other systems reviewed and are negative. [facility] Past Medical History Attestation statement: The following information was validated with the patient. Source: old records reviewed and nursing notes reviewed Social History Social History Household Members: Significant Other Housing: Apartment Do you presently have visiting nurse or other home services: No Alcohol intake: never Patient Tobacco Use Status: Never used Tobacco Substance Use Type: Marijuana Advance Directives: No Do you have a plan to hurt others: No Plan Physical Exam ED Vital Signs: Vital Signs - 24 hr 07/16/24 16:11 Temperature 98.2 F Pulse Rate 66 Respiratory Rate 16 Blood Pressure 115/59 L Pulse Oximetry 99 Oxygen Delivery Method Room Air BMI result Body Mass Index 29.4 Vital signs stable, afebrile General: Well appearing, in no acute distress. Skin: Warm, dry, intact. No rashes or lesions. Head: Normocephalic, atraumatic. EENT: Hearing is intact b/l. PERRLA. Moist mucous membranes.? Neck: Supple without LAD Cardiac: Chest wall symmetric. RRR. Lungs: Normal respiratory effort without accessory muscle use. CTA bilaterally.? Abdomen: Soft, non-tender, non-distended. No rebound tenderness or guarding. Positive BS x4. Sensitive exam performed with Lory ELLER present in room to infrastructure security architect. external genitalia, there is a small open ulceration noted to left labia majora without noted discharge. Tender to palpation. No other vaginal lesions. Vaginal canal pink, moist, with noted purulent discharge within the canal and cervix. Cervix WNL. Patient unable to tolerate bimanual exam due to discomfort. Back: No CVAT. Ext: Upper and lower extremities atraumatic, without tenderness, deformity, swelling or erythema. Full ROM throughout. Neuro: AOx3. Normal speech. Ambulating with steady gait. Psych: Appropriate mood and affect. Responds appropriately to questions. Course Course Course Narrative: This is a Rapid Medical Examination (RME) performed by Maura Chacko PA-C in triage. Full HPI, ROS, assessment and treatment plan per primary provider in the Main ED. 23 y/o female presenting to the ER for evaluation of left sided abdominal pain/left flank pain & dysuria x3 days, vomiting x1 last. LMP 06/08, unsure about . wants STI testing, had unprotected sex with recent partner. No CVA tenderness on exam. Plan: UA, preg test, labs Reevaluation(s) Reevaluation #1: 1228 -- cbc with chronic microcytic anemia, H&H stable and improved when compared to priors. Above transfusion threshold. No leukocytosis or left shift. Chemistry without acute electrolyte abnormality requiring intervention. No BHAVNA. Normal liver function. Lipase WNL. Beta quant undetectable. unlikely. UA pending. 1340 -- urine showing trace leukocyte esterase, 0-5 WBCs, 3-5 squamous epithelial cells and 1+ urine bacteria with urine yeast. ?contamination. will await urine culture for treatment. pelvic exam performed with Lory ELLER at bedside to assist/ chaparone. On exam of external genitalia, there is a small open ulceration noted to left labia majora without noted discharge. Tender to palpation. No other vaginal lesions. Vaginal canal pink, moist, with noted purulent discharge within the canal and cervix. Cervix WNL. Patient unable to tolerate bimanual exam due to discomfort. abd soft, ND/NT. no CVAT. >> physical exam findings are concerning for STI. lesion concerning for herpes infection. culture/ swabs sent to lab. patient would like to be treated prophylactically which I feel is reasonable given physical exam findings. Flagyl, ceftriaxone, doxycycline, fluconazole, and Valtrex ordered at this time. >> chest x-ray pending 1618 --chest x-ray showing complete resolution of previously seen bilateral airspace disease. serology positive for prema and prema krusei/ glabrata. I reached out to Infectious Disease doctor, Dr. Rascon regarding these results who states that there is no need to speciate vaginal candidiasis. recommending to stop diflucan and continued flagyl/ doxy. Medical Decision Making Medical Decision Making [facility] Narrative: 23 year old female presents with pelvic pain, concerning for?intrauterine , urinary tract infection, PID, sexually transmitted infection (including chlamydia, gonorrhea, BV, herpes). Vital signs stable, afebrile. She is nontoxic-appearing and in no acute distress. On pelvic exam, external genitalia with small open ulceration noted to left labia majora without noted discharge. Tender to palpation. No other vaginal lesions. Vaginal canal pink, moist, with noted purulent discharge within the canal and cervix. Cervix WNL. Patient unable to tolerate bimanual exam due to discomfort. Differential diagnosis includes includes TOA other infectious causes however patient has no constitutional symptoms of infection. Ectopic is on the differential but unlikely. Also includes pyelo, endometriosis, adenomyosis but these are less likely. Doubt appendicitis or other primary gastrointestinal process. Plan for labs, UA, CT/NG, pelvic exam, re-evaluation. Given history of recent aspiration pneumonia, medication noncompliance, and continued shortness of breath > will obtain repeat chest x-ray. Differential Diagnosis Differential Diagnoses: The differential diagnosis associated with the presentation includes as above. Admission/Observation Consideration of admission/observation: Escalation of care including admission/observation considered admission considered on presentation Lab Data [facility] Lab Attestation statement: I reviewed the patient's lab results. As above 07/16/24 11:46 07/16/24 11:46 Labs: Lab Results 07/16/24 07/16/24 07/16/24 Range/Units 11:46 12:58 13:31 WBC 9.0 (4.8-10.8) X10*3/uL RBC 3.87 L (4.20-5.50) X10*6/uL Hgb 8.8 L (12.0-16.0) g/dl Hct 29.0 L (37.0-47.0) % MCV 74.9 L (80.0-98.0) fL MCH 22.7 L (27.0-33.0) pg MCHC 30.3 L (31.0-35.0) g/dl RDW 18.3 H (11.0-16.0) % Plt Count 602 H D (160-400) X10*3/uL MPV 9.7 (9.4-12.3) fL Immature Gran % (Auto) 0.4 (0.0-0.4) % Neut % (Auto) 61.5 (45-73) % Lymph % (Auto) 30.1 (20-40) % [place] % (Auto) 6.8 (2-11) % Eos % (Auto) 0.8 (0-4) % Baso % (Auto) 0.4 (0-2) % Lymph # (Auto) 2.7 (1.2-4.9) X10*3/uL Independence # (Auto) 0.6 (0.1-1.2) X10*3/uL Eos # (Auto) 0.1 (0.0-0.4) X10*3/uL Baso # (Auto) 0.0 (0.0-0.2) X10*3/uL Abs Immat Gran (auto) 0.04 H (0.00-0.03) X10*3/uL Absolute Neuts (auto) 5.5 (2.0-8.3) x10*3/uL Absolute Nucleated RBC 0.000 (0.0-0.012) X10*3/uL Nucleated RBC % (auto) 0.0 (0.0-0.2) /100WBC Sodium 141 (135-145) mmol/L Potassium 3.6 (3.3-5.1) mmol/L Chloride 107 (96-108) mmol/L Carbon Dioxide 25 (22-29) mmol/L Anion Gap 13 (12-20) BUN 10 (9-16) mg/dL Creatinine 0.59 (0.5-1.4) mg/dL Estim Creat Clear Calc 133.2 Estimated GFR > 60 Random Glucose 93 (60-115) mg/dL Calcium 9.3 (8.4-10.2) mg/dL Magnesium 1.8 (1.6-2.6) mg/dL Total Bilirubin 0.7 (0.0-1.0) mg/dL Direct Bilirubin 0.2 (0.0-0.5) mg/dL AST 14 (5-31) U/L ALT 14 (0-31) U/L Alkaline Phosphatase 54 (39-117) U/L Total Protein 7.2 (6.5-8.0) g/dL Albumin 4.1 (3.5-5.0) g/dL Lipase 35 (8-78) U/L Beta HCG, Quant < 2 mIU/mL Urine Color Yellow Urine Appearance Clear Urine pH 6.0 (5.0-9.0) Ur Specific Leland 1.015 (1.005-1.025) Urine Protein Negative (Neg-Trace) mg/dL Urine Glucose (UA) Negative (Negative) mg/dL Urine Ketones Negative (Negative) mg/dL Urine Blood Negative (Negative) Urine Nitrite Negative (Negative) Ur Leukocyte Esterase Trace H (Negative) Urine RBC 0-2 (0-2) /HPF Urine WBC 0-5 (0-5) /HPF Ur Squamous Epith Cells 3-5 (0-2) /HPF Urine Bacteria 1+ (None Seen) Hyaline Casts 0-2 (0-2) /LPF Urine Yeast Present Chlam trachomat DNA PCR Cancelled NOT DETECTED N.gonorrhoeae DNA (PCR) Cancelled NOT DETECTED T. vaginalis (PCR) NOT DETECTED (Not Detect) Bact Vaginosis (PCR) NEGATIVE (Negative) C. krusei/glabrata (PCR) DETECTED A (Not Detect) Prema group (PCR) DETECTED A (Not Detect) Independent Interpretation I performed an independent interpretation of an: Plain X-Ray Interpretation: CXR without infiltrate or consolidation, agree with radiologist's interpretation. Radiology Impression Discussion of test interpretation with radiology: I have reviewed the radiologist's reading. Radiologist Impression: EXAMINATION: XR CHEST CLINICAL INFORMATION: Reason aspiration pneumonia with continued shortness of breath. The patient did not complete antibiotic treatments COMPARISON: 06/28/2024 as well as chest radiographs dating back to 2015 TECHNIQUE: 2 views of the chest were obtained. FINDINGS: There has been complete interval clearing of the diffuse patchy airspace disease seen just over 2 weeks ago on 06/28/2024 interestingly, no infiltrates were present on 06/27/2024, just 1 day before this. The lungs are now completely clear. The heart is mildly enlarged, especially when compared to 2015. No pleural effusions. XR/XR chest 2V IMPRESSION: Complete resolution of previously seen bilateral airspace disease. Given the progression of disease, is it possible that this was CHF with pulmonary edema rather than pneumonia? Electronically signed by: Sacha Go MD 07/16/2024 03:13 PM EDT External Record Review External record reviewed: Inpatient record Prescription Management I considered prescription management with: Antiviral (valacyclovir ) and Antibiotic (Flagyl, doxycycline) Social Determinants Patient?s care significantly limited by Social Determinants of Health including: Other Social Determinant of Health Medications Administered Discontinued Medications Generic Name Dose Route Start Last Admin Trade Name Freq PRN Reason Stop Dose Admin Ceftriaxone Sodium 500 mg/ 0 mg 07/16/24 13:35 07/16/24 13:52 Lidocaine HCl 1 ml IM 07/16/24 13:36 1 kit ONCE ONE Administration Doxycycline Monohydrate 100 mg 07/16/24 13:37 07/16/24 13:56 Doxycycline Monohydrate 100 Mg Capsule PO 07/16/24 13:38 100 mg ONCE ONE Administration Fluconazole 150 mg 07/16/24 13:54 07/16/24 13:57 Fluconazole 150 Mg Tablet PO 07/16/24 13:55 150 mg ONCE ONE Administration Metronidazole 500 mg 07/16/24 13:35 07/16/24 13:56 Metronidazole 500 Mg Tablet PO 07/16/24 13:36 500 mg ONCE ONE Administration Valacyclovir HCl 1,000 mg 07/16/24 13:35 07/16/24 13:56 Valacyclovir Hcl 1,000 Mg Tablet PO 07/16/24 13:36 1,000 mg ONCE ONE Administration Critical Care Time Critical Care Time Critical Care Time: No Discharge Plan Discharge Clinical Impression: Acute pelvic inflammatory disease (PID) Patient Disposition: Home, Self-Care Instructions: Sexually Transmitted Diseases (ED), Safe Sex Practices (ED), Female Condom Use (ED) Additional Instructions: You have been evaluated in the Emergency Department today for your pelvic pain. You were tested today for gonorrhea, chlamydia, bacterial vaginosis, and trichomonas (yeast) and the results are still pending; you have been given treatment for these infections presumptively anyway.?You will receive a phone call in approximately 3 days if the results are positive.? Doxycycline is an antibiotic that has been sent to your pharmacy for you to take as directed (twice daily) x14 days. Metronidazole (flagyl) is an antibiotic that has been sent to your pharmacy for you to take as directed x14 days. Valacyclovir is an antiviral that has been sent to your pharmacy for you to take as directed x7 days. Any partner of yours should be tested and treated.? Do not have sexual intercourse for 10 days or until you test negative for all STDs. If you have intercourse again with an untreated partner, you will be reinfected. Practice safe sex and use a condom. Further testing for herpes, syphilis, and HIV can be obtained at your local clinic or by your PCP.? [facility] can assist with these tests. [facility]: [address] [place] [address] [phone] Please take your prescribed antibiotics for the full course of the medication as directed. Please follow up with your primary care physician within two days. You have also been given a referral to a equipment or machinery cleaner. Call them to establish care. They will not call you. Return to the Emergency Department if you experience fevers 100.4? or greater, worsening or uncontrolled pain, rashes, sores, vomiting, or for any other concerning symptoms. Prescriptions: New metronidazole 500 mg tablet 500 mg PO BID 14 Days Qty: 28 0RF doxycycline hyclate 100 mg tablet 100 mg PO BID 14 Days Qty: 28 0RF valacyclovir [Valtrex] 1 gram tablet 1,000 mg PO TID 7 Days Qty: 21 0RF No Action prednisone 20 mg Tablet 40 mg PO DAILY Qty: 8 0RF guaifenesin 100 mg/5 mL Liquid 100 mg PO Q4H PRN (Reason: Cough) Qty: 200 0RF doxycycline monohydrate 100 mg Capsule 100 mg PO Q12H Qty: 10 0RF omeprazole 20 mg Capsule,Delayed Release(Dr/Ec) 20 mg PO DAILY@0630 Qty: 30 0RF amoxicillin-pot clavulanate 875-125 mg tablet 1 tab PO BID Qty: 10 0RF Referrals: Indio Alcantara MD [Physician] - Discharge Date/Time: 07/16/24 16:46 Print Language: Estonian
--- NOTE | 2024-07-16 11:46 | MHC.EDTECH ---
CT/NG by PCR not colleted at this time. Patient provided an additional urine up with instructions on obtaining a dirty urine. Patient expressed understanding.
[2024-07-16 11:53] LABS: MANUAL DIFF FLAG NO
[2024-07-16 11:57] LABS: Appearance Urine Clear; Basophils Percent Auto 0.4 % (0-2); Color Urine Yellow; Eosinophils Absolute Auto 0.1 X10*3/uL (0.0-0.4); Eosinophils Percent Auto 0.8 % (0-4); Glucose Urine UA Negative (Negative); Hemoglobin 8.8 g/dl (12.0-16.0); Imm Gran Abs Auto 0.04 X10*3/uL (0.00-0.03); Imm Gran Pct Auto 0.4 % (0.0-0.4); Leukocyte Esterase Urine Trace (Negative); Lymphocytes Absolute Auto 2.7 X10*3/uL (1.2-4.9); Lymphocytes Percent Auto 30.1 % (20-40); Mean Corpuscular HGB Conc 30.3 g/dl (31.0-35.0); Mean Corpuscular Hemoglobin 22.7 pg (27.0-33.0); Mean Corpuscular Volume 74.9 fL (80.0-98.0); Mean Platelet Volume 9.7 fL (9.4-12.3); Monocytes Absolute Auto 0.6 X10*3/uL (0.1-1.2); Monocytes Percent Auto 6.8 % (2-11); Neutrophils Absolute Auto 5.5 x10*3/uL (2.0-8.3); Neutrophils Percent Auto 61.5 % (45-73); Nitrite Urine Negative (Negative); Platelet Count 602 X10*3/uL (160-400); Red Blood Count 3.87 X10*6/uL (4.20-5.50); Red Cell Distribution Width 18.3 % (11.0-16.0); Specific Gravity - Urine 1.015 (1.005-1.025); UMIC TRIGGER UACC YES; Urine Blood Negative (Negative); Urine Ketones Negative (Negative); Urine Protein Negative (Neg-Trace)
[2024-07-16 12:22] LABS: Alanine Aminotransferase 14 U/L (0-31); Albumin Level 4.1 g/dL (3.5-5.0); Alkaline Phosphatase 54 U/L (39-117); Anion Gap 13 (12-20); Aspartate Amino Transferase 14 U/L (5-31); Bilirubin Direct 0.2 mg/dL (0.0-0.5); Bilirubin Total 0.7 mg/dL (0.0-1.0); Blood Urea Nitrogen 10 mg/dL (9-16); Calcium 9.3 mg/dL (8.4-10.2); Carbon Dioxide 25 mmol/L (22-29); Chloride 107 mmol/L (96-108); Creatinine Clr Calc Pharmacy 133.2; Estimated Glomerular Filt Rate > 60; Glucose Random 93 mg/dL (60-115); Lipase 35 U/L (8-78); Magnesium 1.8 mg/dL (1.6-2.6); Potassium 3.6 mmol/L (3.3-5.1); Sodium 141 mmol/L (135-145); Total Protein 7.2 g/dL (6.5-8.0)
[2024-07-16 12:23] LABS: HCG Quantitative < 2 mIU/mL
[2024-07-16 12:58] LABS: Bacteria Urine 1+ (None Seen); Hyaline Casts Urine 0-2 /LPF (0-2); RBC Urine 0-2 /HPF (0-2); WBC Urine 0-5 /HPF (0-5)
--- NOTE | 2024-07-16 13:39 | PC.NURSE ---
Pelvic exam completed with RN/ PA at bedside, pt had poor toleration d/t pain. Swabs collected and sent down to lab.
[2024-07-16] MEDS: cefTRIAXone sodium 500 MG, Lidocaine HCl 1 % MPF 1 ML IM (13:52)
[2024-07-16] MEDS: Doxycycline Monohydrate 100 MG CAPSULE PO (13:56)
[2024-07-16] MEDS: valACYclovir HCL 1,000 MG TABLET 1000 MG PO (13:56)
[2024-07-16] MEDS: metroNIDAZOLE 500 MG TABLET PO (13:56)
[2024-07-16] MEDS: Fluconazole 150 MG TABLET PO (13:57)
[2024-07-16 14:59] LABS: Bacterial Vaginosis PCR NEGATIVE (Negative); Candida Group PCR DETECTED (Not Detect); Candida glab krusei PCR DETECTED (Not Detect); Trichomonas vaginalis PCR NOT DETECTED (Not Detect)
[2024-07-16 16:11] VITALS: BP 115/59; PULSE 66; RESP 16; TEMP 36.8; O2SAT 99
[2024-07-17 05:36] LABS: CT PCR NOT DETECTED (Not Detect.); NG PCR NOT DETECTED (Not Detect.)
== END 2024-07-16 16:46 | disposition home or self-care (01) ==
PROVIDERS: Physician Assistant; Physician Assistant Medical; Emergency Provider Student in an Organized Health Care Education/Training Program
DX: R30.0 Dysuria (principal); R11.10 Vomiting, unspecified; N73.9 Female pelvic inflammatory disease, unspecified; R06.02 Shortness of breath; Z79.899 Other long term (current) drug therapy; Z20.2 Contact with and (suspected) exposure to infections with a predominantly sexual mode of transmission
CPT/HCPCS: 0352U; 36415; 71046; 80048; 80076; 81001; 83690; 83735; 84702; 85025; 87255; 87491; 87591; 96372; 99284; J0696; J2003

== ENCOUNTER 2024-08-14 12:02 | Outpatient (REF) | payer OTHER, SELFPAY ==
[2024-08-14 13:34] LABS: MANUAL DIFF FLAG NO
[2024-08-14 13:45] LABS: Basophils Percent Auto 0.4 % (0-2); Eosinophils Absolute Auto 0.1 X10*3/uL (0.0-0.4); Hematocrit 31.2 % (37.0-47.0); Hemoglobin 9.6 g/dl (12.0-16.0); Imm Gran Abs Auto 0.02 X10*3/uL (0.00-0.03); Imm Gran Pct Auto 0.3 % (0.0-0.4); Lymphocytes Absolute Auto 2.4 X10*3/uL (1.2-4.9); Lymphocytes Percent Auto 34.8 % (20-40); Mean Corpuscular HGB Conc 30.8 g/dl (31.0-35.0); Mean Corpuscular Hemoglobin 22.8 pg (27.0-33.0); Mean Corpuscular Volume 74.1 fL (80.0-98.0); Mean Platelet Volume 10.4 fL (9.4-12.3); Monocytes Absolute Auto 0.6 X10*3/uL (0.1-1.2); Monocytes Percent Auto 8.1 % (2-11); Neutrophils Absolute Auto 3.8 x10*3/uL (2.0-8.3); Neutrophils Percent Auto 55.4 % (45-73); Platelet Count 504 X10*3/uL (160-400); Red Blood Count 4.21 X10*6/uL (4.20-5.50); Red Cell Distribution Width 17.5 % (11.0-16.0); White Blood Count 6.8 X10*3/uL (4.8-10.8)
[2024-08-14 14:15] LABS: Alanine Aminotransferase 24 U/L (0-31); Albumin Level 4.3 g/dL (3.5-5.0); Alkaline Phosphatase 60 U/L (39-117); Anion Gap 14 (12-20); Aspartate Amino Transferase 25 U/L (5-31); Bilirubin Total 0.9 mg/dL (0.0-1.0); Blood Urea Nitrogen 11 mg/dL (9-16); Calcium 9.7 mg/dL (8.4-10.2); Carbon Dioxide 22 mmol/L (22-29); Chloride 106 mmol/L (96-108); Estimated Glomerular Filt Rate > 60; Glucose Random 97 mg/dL (60-115); Potassium 3.9 mmol/L (3.3-5.1); Sodium 138 mmol/L (135-145); Total Protein 7.5 g/dL (6.5-8.0)
[2024-08-14 14:23] LABS: TSH reflex Free T4 0.95 uIU/mL (0.32-4.0)
[2024-08-15 01:24] LABS: CT PCR NOT DETECTED (Not Detect.); NG PCR NOT DETECTED (Not Detect.)
[2024-08-15 08:46] LABS: HBS Num1 10.65 mIU/mL (0-7.99); HBc Num1 0.16 S/CO (0.00-0.79); HBsAGNum1 0.38 S/CO (0.00-0.99); HIV AB/AG Nonreactive (Nonreactive); HIV Num 1 0.05 S/CO (0.00-0.99); Hepatitis B Core Antibody Nonreactive (Nonreactive); Hepatitis B Surface Antigen Negative (Negative); ~Hepatitis C Antibody Nonreactive (Nonreactive)
[2024-08-15 12:02] LABS: HBS Num2 10.49 mIU/mL (0-7.99); HBS Num3 9.46 mIU/mL (0-7.99); ~Hepatitis B Surface Antibody GRAYZONE (Nonreactive)
== END 2024-08-14 12:03 | disposition home or self-care (01) ==
LOC: HO.HHCL 12:02
PROVIDERS: Visit Provider Nurse Practitioner Family
DX: Z00.00 Encounter for general adult medical examination without abnormal findings (principal); Z11.4 Encounter for screening for human immunodeficiency virus [HIV]; Z11.3 Encounter for screening for infections with a predominantly sexual mode of transmission
CPT/HCPCS: 36415; 80053; 84443; 85025; 86704; 86706; 86803; 87340; 87389; 87491; 87591

== ENCOUNTER 2024-08-31 09:57 | Outpatient (REF) | payer OTHER, SELFPAY ==
[2024-08-31 12:43] LABS: HBS Num1 9.66 mIU/mL (0-7.99)
[2024-08-31 12:50] LABS: Syphilis Screen Nonreactive (Nonreactive)
[2024-08-31 14:05] LABS: HBS Num2 9.27 mIU/mL (0-7.99); HBS Num3 9.72 mIU/mL (0-7.99); ~Hepatitis B Surface Antibody GRAYZONE (Nonreactive)
[2024-09-01 13:36] LABS: Bacterial Vaginosis PCR NEGATIVE (Negative); Candida Group PCR DETECTED (Not Detect); Candida glab krusei PCR NOT DETECTED (Not Detect); Trichomonas vaginalis PCR NOT DETECTED (Not Detect)
== END 2024-08-31 09:58 | disposition home or self-care (01) ==
LOC: HO.HHCL 09:57
PROVIDERS: Visit Provider Advanced Practice Midwife
DX: Z11.3 Encounter for screening for infections with a predominantly sexual mode of transmission (principal); L30.9 Dermatitis, unspecified
CPT/HCPCS: 0352U; 36415; 86706; 86780

== ENCOUNTER 2024-10-09 09:55 | Outpatient (REF) | payer OTHER, SELFPAY ==
[2024-10-09 12:34] LABS: Amphetamine Screen Urine Not Detected (Not Detect); Barbiturates, Urine Not Detected (Not Detect); Benzodiazepines Screen Urine Not Detected (Not Detect); Buprenorphine Scr Not Detected (Not Detect); Cannabinoid Screen Urine POSITIVE (Not Detect); Cocaine Screen Urine Not Detected (Not Detect); Fentanyl, urine Not Detected (Not Detect); Methadone Screen, Urine Not Detected (Not Detect); Opiate Screen Urine Not Detected (Not Detect); Oxycodone Screen Urine Not Detected (Not Detect); Phencyclidine Screen Urine Not Detected (Not Detect)
== END 2024-10-09 09:56 | disposition home or self-care (01) ==
LOC: HO.HHCL 09:55
PROVIDERS: Visit Provider Registered Nurse
DX: F12.90 Cannabis use, unspecified, uncomplicated (principal)
CPT/HCPCS: 80307

== ENCOUNTER 2025-03-10 16:39 | Outpatient (REF) | payer MEDICAID, SELFPAY ==
--- OUTSIDE RECORDS SUMMARY | 2025-03-10 16:41 | XMS_ITS | Encounter Summary ---
Author Organization [employer] Address [address] [place] [address] Care Team Providers Care Medical Imaging Technologist Name Role Phone Apurva Roman BARREL COOPER Primary Care Provider [phone] Encounter Details Date Type Department Care Team ([facility] st Contact Info) Description 09/02/2024 Orders Only [facility] MEDICINE [address], [place] [phone] Jeni Knox CNM [address], [place] [phone] Social History Tobacco Use Types Packs/Day Years Used Date Smoking Tobacco: Former Cigarettes Passive Smoke Exposure: Past Smokeless Tobacco: Former Alcohol Use Standard Drinks/Week Comments Not Currently 0 (1 standard drink = 0.6 oz pur e alcohol) Depression Answer Date Recorded Patient Health Questionnaire-9 Score 0 08/14/2024 Patient Health Questionnaire-9 Score 0 08/14/2024 Last PHQ-9: Questionnaire Data Not on file 1 10/14/2023 Housing Stability Answer Date Recorded What is your housing situation today? I have franki adorno 08/14/[address] you li ve. Do you have problems with any of the following? Not on file 08/14/2024 Food Insecurity Answer Date Recorded Within the past 12 months, y ou worried that your food would run out before you got money to buy more: Never True 08/14/2024 Within the past 12 months,th e food you bought just didn't last and you didn't have enough money to get more: Never True 10/2023 Transportation Answer Date Recorded In the past 12 months, has l ack of transportation kept you from medical appts, meetings, work or from getting things needed for daily living? No 08/14/2024 Utilities Answer Date Recorded In the past 12 months, has t he electric, gas, oil or water company threatened to shut off services in your home? No 08/14/2024 Depression Answer Date Recorded Patient Health Questionnaire-2 Score 0 08/14/2024 Internet Access Answer Date Recorded Internet Access Q1 Yes 08/14/2024 Internet Access Q2 Not on file 08/14/2024 Comments No Sex and Gender Information Value Date Recorded Sex Assigned at Female 08/03/2024 9:48 AM EDT Legal Sex Female 10:03 AM EDT Gender Identity Female 08/03/2024 9:48 AM EDT Sexual Orientation Straight 08/03/2024 9: 48 AM EDT documented as of this encounter Plan of Treatment Upcoming Encounters Date Type Department Care Team (Late st Contact Info) Description 03/31/2025 10:00 AM EDT Procedure Visit [facility] MEDICINE [address] [place] [phone] Apurva Roman FNP [address] [place] [address] 04/07/2025 10:45 AM EDT Office Visit [facility] MEDICINE [address] [place] [address] Apurva Roman FNP [address] [place] [phone] documented as of this encounter Visit Diagnoses Not on filedocumented in this encounter Additional Health Concerns Assessment Noted Time PHQ-9 Depression Total Score: 0 08/14/20 9:16 AM EDT documented as of this encounter Care Teams Medical Imaging Technologist Relationship Specialty Start Date End Date Apurva Roman FNP [address] [place] [address] PCP - General Family Medicine 08/14/24 documented as of this encounter
[2025-03-11 05:19] LABS: CT PCR NOT DETECTED (Not Detect.); NG PCR NOT DETECTED (Not Detect.)
[2025-03-11 08:55] LABS: Bacterial Vaginosis PCR NEGATIVE (Negative); Candida Group PCR NOT DETECTED (Not Detect); Candida glab krusei PCR NOT DETECTED (Not Detect); Trichomonas vaginalis PCR NOT DETECTED (Not Detect)
== END 2025-03-10 16:40 | disposition home or self-care (01) ==
LOC: HO.HHCLNP 16:39
PROVIDERS: Visit Provider Nurse Practitioner Family
DX: R30.0 Dysuria (principal)
CPT/HCPCS: 81515; 87086; 87491; 87591

== ENCOUNTER 2025-03-11 11:55 | Outpatient (REF) | payer MEDICAID, SELFPAY ==
[2025-03-11 13:51] LABS: Appearance Urine Turbid; Color Urine Yellow; Glucose Urine UA Negative (Negative); Leukocyte Esterase Urine Small (1+) (Negative); Nitrite Urine Negative (Negative); PH 5.5 (5.0-9.0); Specific Gravity - Urine 1.025 (1.005-1.025); UMIC TRIGGER UA YES; Urine Blood Small (1+) (Negative); Urine Ketones Trace mg/dL (Negative); Urine Protein Negative (Neg-Trace)
[2025-03-11 14:05] LABS: Bacteria Urine Trace (None Seen); Hyaline Casts Urine 0-2 /LPF (0-2)
== END 2025-03-11 11:56 | disposition home or self-care (01) ==
LOC: HO.HHCL 11:55
PROVIDERS: Visit Provider Nurse Practitioner Family
DX: R30.0 Dysuria (principal)
CPT/HCPCS: 81001

== ENCOUNTER 2025-03-16 10:21 | Emergency (ER) | payer MEDICAID, SELFPAY ==
--- NOTE | 2025-03-16 | ECG_ITS ---
Test Reason : chest pain Blood Pressure : */* mmHG Vent. Rate : 61 BPM Atrial Rate : 61 BPM P-R Int : 138 ms QRS Dur : 80 ms QT Int : 382 ms P-R-T Axes : 24 45 17 degrees QTcB Int : 384 ms Normal sinus rhythm with sinus arrhythmia Normal ECG When compared with ECG of 28-Jun-2024 08:42, No significant change was found Referred By: Generic ED Physician Electronically Signed By: RAFAEL HANCOCK
[2025-03-16 10:27] VITALS: BP 112/51; PULSE 64; RESP 18; TEMP 36.7; O2SAT 96; BMI 31.6
[2025-03-16 11:09] LABS: MANUAL DIFF FLAG NO
[2025-03-16 11:14] LABS: Appearance Urine Clear; Color Urine Dark Yellow; Glucose Urine UA Negative (Negative); Leukocyte Esterase Urine Small (1+) (Negative); Nitrite Urine Positive (Negative); PH 5.5 (5.0-9.0); Specific Gravity - Urine >= 1.030 (1.005-1.025); UMIC TRIGGER UACC YES; Urine Blood Negative (Negative); Urine Ketones Trace mg/dL (Negative); Urine Protein Negative (Neg-Trace)
[2025-03-16 11:15] LABS: Basophils Percent Auto 0.3 % (0-2); Eosinophils Absolute Auto 0.2 X10*3/uL (0.0-0.4); Eosinophils Percent Auto 3.1 % (0-4); Hematocrit 32.2 % (37.0-47.0); Hemoglobin 10.4 g/dl (12.0-16.0); Imm Gran Abs Auto 0.02 X10*3/uL (0.00-0.03); Imm Gran Pct Auto 0.3 % (0.0-0.4); Lymphocytes Absolute Auto 2.7 X10*3/uL (1.2-4.9); Lymphocytes Percent Auto 34.8 % (20-40); Mean Corpuscular HGB Conc 32.3 g/dl (31.0-35.0); Mean Corpuscular Hemoglobin 24.3 pg (27.0-33.0); Mean Corpuscular Volume 75.2 fL (80.0-98.0); Mean Platelet Volume 9.9 fL (9.4-12.3); Monocytes Absolute Auto 0.4 X10*3/uL (0.1-1.2); Monocytes Percent Auto 5.4 % (2-11); Neutrophils Absolute Auto 4.4 x10*3/uL (2.0-8.3); Neutrophils Percent Auto 56.1 % (45-73); Platelet Count 489 X10*3/uL (160-400); Red Blood Count 4.28 X10*6/uL (4.20-5.50); Red Cell Distribution Width 17.5 % (11.0-16.0); White Blood Count 7.8 X10*3/uL (4.8-10.8)
[2025-03-16 11:18] LABS: UPreg QC Valid YES; Urine Pregnancy NEGATIVE (NEGATIVE)
[2025-03-16 11:24] LABS: Anion Gap 12 (12-20); Blood Urea Nitrogen 14 mg/dL (9-16); Calcium 9.2 mg/dL (8.4-10.2); Carbon Dioxide 25 mmol/L (22-29); Chloride 108 mmol/L (96-108); Creatinine Clr Calc Pharmacy 139.4; Estimated Glomerular Filt Rate > 60; Glucose Random 113 mg/dL (60-115); Potassium 4.1 mmol/L (3.3-5.1); Sodium 141 mmol/L (135-145)
--- NOTE | 2025-03-16 11:26 | PC.NURSE ---
Left ED stating I got an appointment with a heart doctor, so I'm gonna leave . Left without completing treatment. information assurance (John Wong) aware.
[2025-03-16 11:27] LABS: Bacteria Urine Trace (None Seen); Hyaline Casts Urine 0-2 /LPF (0-2); RBC Urine 0-2 /HPF (0-2); Squamous Epithelial Cell Urine 0-2 /HPF (0-2); UACC Culture Trigger YES; WBC Urine 0-5 /HPF (0-5)
[2025-03-16 11:37] LABS: Troponin-I High Sensitivity < 2.7 ng/L (<3.5-17.0)
[2025-03-16 11:50] LABS: Amphetamine Screen Urine Not Detected (Not Detect); Cocaine Screen Urine Not Detected (Not Detect); Oxycodone Screen Urine Not Detected (Not Detect)
== END 2025-03-16 11:42 | disposition left against medical advice (07) ==
LOC: HO.ED 11:43
PROVIDERS: Emergency Provider Emergency Medicine
DX: R07.9 Chest pain, unspecified (principal)
CPT/HCPCS: 36415; 80048; 80307; 81001; 81025; 84484; 85025; 87086; 93005; 99281; 99283

== ENCOUNTER → 2025-03-16 10:50 | Outpatient (BNV) | payer MEDICAID, SELFPAY | PROVIDERS: Emergency Provider Emergency Medicine; Visit Provider Internal Medicine | DX: R07.9 Chest pain, unspecified (principal) | CPT/HCPCS: 93010 ==

== ENCOUNTER 2025-05-07 16:10 | Outpatient (REF) | payer MEDICAID, SELFPAY ==
[2025-05-08 12:12] LABS: CT PCR Urine NOT DETECTED (Not Detect.); NG PCR Urine NOT DETECTED (Not Detect.)
== END 2025-05-07 16:11 | disposition home or self-care (01) ==
LOC: HO.HHCLNP 16:10
PROVIDERS: Visit Provider Nurse Practitioner Family
DX: N73.0 Acute parametritis and pelvic cellulitis (principal)
CPT/HCPCS: 36415; 87491; 87591

== ENCOUNTER 2025-05-21 07:51 | Emergency (ER) | payer MEDICAID, SELFPAY ==
--- NOTE | 2025-05-21 08:10 | ED.PSYCH ---
HPI - Psych General Chief Complaint: Psychiatric Symptoms Stated Complaint: Crisis Wants to Hurt Self Time Seen by Provider: 05/21/25 08:13 Source: patient and old records reviewed Mode of arrival: ambulatory Limitations: no limitations History of Present Illness ED Provider: ALIRIO HPI Narrative: 24 yo female with PMH of pneumonia, depression and anxiety - states she started with depression, SI, she has not been using drugs. She is homeless at this time. Patient plans to jump from bridge with her male partner who presents here as well for crisis MD complaint: suicidal ideation and feels depressed Onset (ago): week(s) Duration: getting worse History of same: Yes Relieving factors: none Exacerbating factors: other Context: not taking psychiatric medications and significant life stressor Associated psychiatric symptoms: depression and suicidal ideation Associated symptoms: denies other symptoms If self harm: admits thoughts of self harm and has plan Related Data Previous Rx's ?Medication ?Instructions ?Recorded nitrofurantoin 100 mg PO BID 5 days #10 caps 05/21/25 monohydrate/macrocrystals 100 mg capsule (Macrobid) Allergies Allergy/AdvReac Type Severity Reaction Status Date / Time No Known Allergies Allergy Verified 05/21/25 08:12 Review of Systems Review of Systems: Constitutional : No Fever, No Chills ENT/Mouth : No Ear Pain, No Nasal Congestion, No sore throat Eyes: No Eye Pain, No Swelling, No Redness Cardiovascular : No Chest Pain, No SOB Respiratory : No Cough, No Sputum, No Dyspnea Gastrointestinal : No Nausea, No Vomiting, No Diarrhea, No Hematochezia, No Melena Genitourinary : No Dysuria, No Urinary Frequency, No Hematuria Musculoskeletal : No Myalgias Skin : No Skin Lesions, No rash Neuro : No Weakness, No Numbness, No Paresthesias, No Dizziness, No Headache Psych : positive Anxiety, positive Depression, positive SI no HI Heme/Lymph: No Lymphadenopathy Endocrine : No Polyuria, No Polydipsia All other systems reviewed and are negative [facility] Past Medical History Attestation statement: The following information was validated with the patient. Source: old records reviewed Medical History Aspiration pneumonia Social History Social History Household Members: Significant Other Housing: Apartment Do you presently have visiting nurse or other home services: No Alcohol intake: current Alcohol intake frequency: holidays/special occasions only Patient Tobacco Use Status: Never used Tobacco Smoked in Last 30 Days: No Use of substances other than those prescribed or required for medical reasons: No Substance Use Type: Marijuana Advance Directives: No Advance Directives Information Provided: No Do you have a plan to hurt others: No Plan Physical Exam Vital Signs: Vital Signs: Last Vital Signs Temp 97 F 05/21/25 08:11 Pulse 65 05/21/25 08:11 Resp 16 05/21/25 08:39 BP 110/61 05/21/25 08:11 Pulse Ox 99 05/21/25 08:11 O2 Del Method Room Air 05/21/25 08:11 BMI result Body Mass Index 30.2 Appearance: Alert. Oriented X3. No acute distress. Eyes: Pupils equal, round and reactive to light. ENT: Pharynx normal. Neck: Normal inspection. Neck supple. CVS: Normal heart rate and rhythm. Pulses normal. Respiratory: No respiratory distress. Breath sounds normal. Abdomen: Soft and nontender. Skin: Skin warm and dry. Normal skin color. Normal skin turgor. Extremities: No lower extremity edema. No calf ttp Neuro: Oriented X 3. No motor deficit. No sensory deficit. CN2-12 intact Course Course Course Narrative: 24 yo female with pMH of pneumonia, depression and anxiety - states she started with depression, SI, she has not been using drugs. She is homeless at this time. No medical issues or concerns. At this time she states she takes no medications. Will obtain labs, CARE team consult. Reevaluation(s) Reevaluation #1: Time: 12:49 Date: 05/21/25 Provider: Valerie Caceres DO Physician observation ended at 1249pm. Patient has been cleared for discharge by the CARE team. Will follow up as an outpatient. Medications Administered Generic Name Dose Route Start Last Admin Trade Name Freq PRN Reason Stop Dose Admin Nitrofurantoin Macrocrystals 100 mg 05/21/25 09:15 05/21/25 10:15 Nitrofurantoin Monohyd/M-Cryst 100 Mg Capsule PO 05/26/25 09:14 100 mg BID RENEE Administration Medical Decision Making Medical Decision Making MDM Narrative: 24 yo female with pMH of pneumonia, depression and anxiety - SI with plan here with partner same plan. No medical issues or concerns. At this time she states she takes no medications. Will obtain labs, CARE team consult. Differential Diagnosis Differential Diagnoses: The differential diagnosis associated with the presentation includes depression, SI poor social support Admission/Observation Consideration of admission/observation: Escalation of care including admission/observation considered physician observation started at 814am pending CARE team Consult Healthcare Provider Management of the patient was discussed with: Behavioral Health Provider Lab Data MDM Lab Attestation statement: I reviewed the patient's lab results. started on macrobid for UTI 05/21/25 08:48 05/21/25 08:48 Labs: Lab Results 05/21/25 05/21/25 Range/Units 08:42 08:48 WBC 9.7 (4.8-10.8) X10*3/uL RBC 4.23 (4.20-5.50) X10*6/uL Hgb 10.5 L (12.0-16.0) g/dl Hct 31.9 L (37.0-47.0) % MCV 75.4 L (80.0-98.0) fL MCH 24.8 L (27.0-33.0) pg MCHC 32.9 (31.0-35.0) g/dl RDW 16.1 H (11.0-16.0) % Plt Count 438 H (160-400) X10*3/uL MPV 9.9 (9.4-12.3) fL Immature Gran % (Auto) 0.4 (0.0-0.4) % Neut % (Auto) 65.5 (45-73) % Lymph % (Auto) 27.1 (20-40) % Butts % (Auto) 5.0 (2-11) % Eos % (Auto) 1.7 (0-4) % Baso % (Auto) 0.3 (0-2) % Lymph # (Auto) 2.6 (1.2-4.9) X10*3/uL Butts # (Auto) 0.5 (0.1-1.2) X10*3/uL Eos # (Auto) 0.2 (0.0-0.4) X10*3/uL Baso # (Auto) 0.0 (0.0-0.2) X10*3/uL Abs Immat Gran (auto) 0.04 H (0.00-0.03) X10*3/uL Absolute Neuts (auto) 6.4 (2.0-8.3) x10*3/uL Absolute Nucleated RBC 0.000 (0.0-0.012) X10*3/uL Nucleated RBC % (auto) 0.0 (0.0-0.2) /100WBC Sodium 139 (135-145) mmol/L Potassium 3.9 (3.3-5.1) mmol/L Chloride 107 (96-108) mmol/L Carbon Dioxide 26 (22-29) mmol/L Anion Gap 10 L (12-20) BUN 12 (9-16) mg/dL Creatinine 0.52 (0.5-1.4) mg/dL Estim Creat Clear Calc 157.9 Estimated GFR > 60 Random Glucose 102 (60-115) mg/dL Calcium 9.0 (8.4-10.2) mg/dL Magnesium 1.9 (1.6-2.6) mg/dL Total Bilirubin 1.3 H (0.0-1.0) mg/dL Direct Bilirubin 0.4 (0.0-0.5) mg/dL AST 23 (5-31) U/L ALT 22 (0-31) U/L Alkaline Phosphatase 67 (39-117) U/L Total Protein 7.4 (6.5-8.0) g/dL Albumin 4.5 (3.5-5.0) g/dL Beta HCG, Quant < 2 mIU/mL Urine Color Yellow Urine Appearance Cloudy Urine pH 6.0 (5.0-9.0) Ur Specific [place] >= 1.030 H (1.005-1.025) Urine Protein Trace (Neg-Trace) mg/dL Urine Glucose (UA) Negative (Negative) mg/dL Urine Ketones 15 (Negative) mg/dL Urine Blood Trace H (Negative) Urine Nitrite Negative (Negative) Ur Leukocyte Esterase Moderate (2+) H (Negative) Urine RBC 3-5 H (0-2) /HPF Urine WBC 21-50 H (0-5) /HPF Ur Squamous Epith Cells 3-5 (0-2) /HPF Urine Bacteria 4+ (None Seen) Hyaline Casts 3-5 (0-2) /LPF Urine Opiates Screen Not Detected (Not Detect) Ur Buprenorphine Scrn Not Detected (Not Detect) ng/mL Ur Oxycodone Screen Not Detected (Not Detect) ng/mL Urine Methadone Screen Not Detected (Not Detect) ng/mL Urine Fentanyl Screen Not Detected (Not Detect) Ur Barbiturates Screen Not Detected (Not Detect) Ur Phencyclidine Scrn Not Detected (Not Detect) Ur Amphetamines Screen Not Detected (Not Detect) U Benzodiazepines Scrn Not Detected (Not Detect) Urine Cocaine Screen POSITIVE H (Not Detect) U Marijuana (THC) Screen POSITIVE H (Not Detect) Ethyl Alcohol < 10 mg/dL External Record Review External record reviewed: Outpatient record Prescription Management I considered prescription management with: Antibiotic Social Determinants Patient?s care significantly limited by Social Determinants of Health including: Inadequate housing, Low income and Problems related to primary support group Discharge Plan Discharge Clinical Impression: Acute UTI Depression Qualifiers: Depression Type: unspecified Qualified Code(s): F32.A - Depression, unspecified Patient Disposition: Home, Self-Care Instructions: Urinary Tract Infection in Women (ED), Depression (ED) Additional Instructions: your labs look good you have a UTI finish your antibiotics You were seen in our Emergency Department today for treatment of a behavioral health issue. It is important after your visit that you follow up with either your behavioral health provider or a primary care doctor within 7 days.? If you have trouble finding a therapist you can reach out to [address] [phone] The National Suicide and Crisis Lifeline can be reached 7 days a week 24 hours a day.? Call 988 to speak with someone.? Return for any worsening symptoms or concerns such as thoughts of self harm or harm to others. Please call 911 if you feel your mental health is worsening.? Prescriptions: New nitrofurantoin monohyd/m-cryst [Macrobid] 100 mg capsule 100 mg PO BID 5 Days Qty: 10 0RF Rx Instructions: must administer with a meal/food Interventions: [place]-Suicide Risk Severity Scale Last Done: 05/21/25 08:37 Print Language: Maori
[2025-05-21 08:11] VITALS: BP 110/61; PULSE 65; RESP 18; TEMP 36.1; O2SAT 99; BMI 30.2
[2025-05-21 08:39] VITALS: RESP 16
--- NOTE | 2025-05-21 08:40 | PC.NURSE ---
RE: med rec This Rn completed pts med rec with patient. Pt reports that she takes no medications (despite having recent scripts from [facility])
--- OUTSIDE RECORDS SUMMARY | 2025-05-21 08:50 | XMS_ITS | Encounter Summary ---
Author Organization [employer] Address [address] [place] [address] Care Team Providers Care Car Rental Agency Manager Name Role Phone Apurva Roman LU Primary Care Provider [phone] Reason for Visit * Reason Comments Med Refill Encounter Details Date Type Department Care Team ([facility] st Contact Info) Description 03/28/2025 Refill [facility] [address] [place] [address], [place] [phone] Lory Hull NP [address] [place], [place] [phone] Other insomnia Social History Tobacco Use Types Packs/Day Years Used Date Smoking Tobacco: Never Passive Smoke Exposure: Never Smokeless Tobacco: Never Alcohol Use Standard Drinks/Week Comments Not Currently 0 (1 standard drink = 0.6 oz pur e alcohol) Depression Answer Date Recorded Patient Health Questionnaire-9 Score 20 03/10/2025 Patient Health Questionnaire-9 Score 20 03/10/2025 Last PHQ-9: Questionnaire Data Not on file 0 03/10/2025 Housing Stability Answer Date Recorded What is your housing situation today? I have franki adorno 10/09/[address] you li ve. Do you have problems with any of the following? None of the above 10/09/2024 Food Insecurity Answer Date Recorded Within the [...] Answer Date Recorded Patient Health Questionnaire-2 Score 4 03/10/2025 Internet Access Answer Date Recorded Internet Access Q1 Yes 08/14/2024 Internet Access Q2 Not on file 08/14/2024 Comments No Sex and Gender Information Value Date Recorded Sex Assigned at Female 08/03/2024 9:48 AM EDT Legal Sex Female 10:03 AM EDT Gender Identity Female 08/03/2024 9:48 AM EDT Sexual Orientation Straight 08/03/2024 9: 48 AM EDT documented as of this encounter Miscellaneous Notes * Telephone Encounter - LU Cooper - 03/29/2025 3:57 PM EDT Approving, but needs appt for additional refills. documented in this encounter Plan of Treatment Upcoming Encounters Date Type Department Care Team (Late st Contact Info) Description 06/24/2025 9:30 AM EDT Procedure Visit [facility] [address] [place] [address] Jeni Knox CNM [address] [place] [address] documented as of this encounter Visit Diagnoses Diagnosis Other insomnia documented in this encounter Additional Health Concerns Assessment Noted Time PHQ-9 Depression Total Score: 20 025 2:58 PM EDT documented as of this encounter Care Teams Car Rental Agency Manager Relationship Specialty Start Date End Date Apurva Roman FNP [address] [place] [address] PCP - General Family Medicine 08/14/24 documented as of this encounter
[2025-05-21 08:58] LABS: MANUAL DIFF FLAG NO
[2025-05-21 08:59] LABS: Appearance Urine Cloudy; Glucose Urine UA Negative (Negative); PH 6.0 (5.0-9.0); Specific Gravity - Urine >= 1.030 (1.005-1.025); UMIC TRIGGER UACC YES
[2025-05-21 09:02] LABS: Hematocrit 31.9 % (37.0-47.0); Hemoglobin 10.5 g/dl (12.0-16.0); Imm Gran Abs Auto 0.04 X10*3/uL (0.00-0.03); Imm Gran Pct Auto 0.4 % (0.0-0.4); Lymphocytes Absolute Auto 2.6 X10*3/uL (1.2-4.9); Mean Corpuscular HGB Conc 32.9 g/dl (31.0-35.0); Mean Corpuscular Hemoglobin 24.8 pg (27.0-33.0); Mean Corpuscular Volume 75.4 fL (80.0-98.0); NRBC Abs Auto 0.000 X10*3/uL (0.0-0.012); NRBC Pct Auto 0.0 /100WBC (0.0-0.2); Platelet Count 438 X10*3/uL (160-400); Red Blood Count 4.23 X10*6/uL (4.20-5.50); White Blood Count 9.7 X10*3/uL (4.8-10.8)
[2025-05-21 09:10] LABS: UACC Culture Trigger YES
[2025-05-21 09:32] LABS: Alanine Aminotransferase 22 U/L (0-31); Albumin Level 4.5 g/dL (3.5-5.0); Alkaline Phosphatase 67 U/L (39-117); Anion Gap 10 (12-20); Aspartate Amino Transferase 23 U/L (5-31); Blood Urea Nitrogen 12 mg/dL (9-16); Calcium 9.0 mg/dL (8.4-10.2); Carbon Dioxide 26 mmol/L (22-29); Chloride 107 mmol/L (96-108); Creatinine Clr Calc Pharmacy 157.9; Estimated Glomerular Filt Rate > 60; Magnesium 1.9 mg/dL (1.6-2.6); Potassium 3.9 mmol/L (3.3-5.1); Sodium 139 mmol/L (135-145); Total Protein 7.4 g/dL (6.5-8.0)
[2025-05-21 10:21] LABS: Cannabinoid Screen Urine POSITIVE (Not Detect)
[2025-05-21 12:56] VITALS: BP 121/63; PULSE 71; RESP 14; TEMP 37.1; O2SAT 98
== END 2025-05-21 13:08 | disposition home or self-care (01) ==
PROVIDERS: Emergency Provider Emergency Medicine
DX: N39.0 Urinary tract infection, site not specified (principal); F32.A Depression, unspecified; R45.851 Suicidal ideations; Z59.00 Homelessness unspecified
CPT/HCPCS: 36415; 80048; 80076; 80307; 81001; 83735; 84702; 85025; 87086; 99285; S9485